=== PATIENT | female | born 1955 | race Caucasian/White ===

== ENCOUNTER → 2021-10-20 | Outpatient (CLI) | payer MEDICARE, OTHER, SELFPAY ==
[2021-10-20 17:48] LABS: Absolute Lymphocyte Count 2.51 X10^3/uL (0.83-4.51); Absolute Neutrophil Count 5.2 X10^3/uL (2.0-7.7); Basophil# 0.04 X10^3/uL; Basophil% 0.5 % (0-1); Eosinophil# 0.23 X10^3/uL; Eosinophils% 2.7 % (0-5); Hematocrit 37.9 % (37-47); Hemoglobin 12.6 g/dL (12.0-15.0); Lymphocyte # 2.51 X10^3/ul (0.83-4.51); Lymphocyte % 29.3 % (19-41); Mean Corp Hgb Conc 33.2 g/dL (32-36); Mean Corpuscular Hgb 31.7 pg (27.0-32.0); Mean Corpuscular Volume 95.5 fL (81-99); Mean Platelet Vol. 9.4 fl (6.2-12.0); Monocyte# 0.53 X10^3/uL; Monocyte% 6.2 % (0-10); NRBC Flagged by Analyzer 0 % (0-5); Neutrophil # 5.23 X10^3/uL (2.7-7.7); Neutrophil % 60.9 % (47-70); Platelet Count 342 K/mm3 (150-450); RBC Distribution Width CV 15.8 % (11.6-14.6); RBC Distribution Width SD 54.3 fl (35.1-43.9); Red Blood Count 3.97 M/mm3 (4.2-5.4); White Blood Count 8.6 K/mm3 (4.4-11.0)
[2021-10-20 17:50] LABS: Erythrocyte Sedimentation Rate 7 mm/hr (0-30)
[2021-10-20 18:00] LABS: CRP 3.75 mg/L (0.0-3.0)
== END | disposition home or self-care (01) ==
PROVIDERS: Referring Provider Specialist; Visit Provider Specialist
DX: Z96.651 Presence of right artificial knee joint (principal)
CPT/HCPCS: 36415; 85025; 85652; 86140

== ENCOUNTER → 2021-11-01 | Outpatient (CLI) | payer MEDICARE, OTHER, SELFPAY ==
[2021-11-01 13:12] LABS: Synovial Fld Mononuclear WBC # 0.851 10^3/ul; Synovial Fld Mononuclear WBC % 65.8 %; Synovial Fld Polynuclear WBC # 0.443 10^3/uL; Synovial Fld Polynuclear WBC % 34.2 %
[2021-11-01 13:18] LABS: AUTO B FLUID DILUENT BKGD CT WBC <0.1 RBC <0.01 (W<.1,R<.01); Appearance /Synovial Fluid Sl Cl (CLEAR); Color / Synovial Fluid Yellow (Pale Yellow); Viscosity / Synovial Fluid Sl. Viscous (HIGH)
[2021-11-01 13:19] LABS: Source / Synovial Fluid R KNEE
[2021-11-01 13:24] LABS: RBC /Synovial Fluid 230 /mm3 (0)
[2021-11-01 13:44] LABS: Lymph 37 %; Monocyte /Synovial Fluid 35 %; Neutrophil 27 % (0-25); Other Cell /Synovial Fluid 1 %
[2021-11-03 10:16] LABS: Pathologist Comment Reviewed
== END | disposition home or self-care (01) ==
LOC: LABSPEC 12:13
PROVIDERS: Referring Provider Specialist; Visit Provider Specialist
DX: M25.461 Effusion, right knee (principal); Z96.651 Presence of right artificial knee joint
CPT/HCPCS: 87015; 87070; 87075; 87101; 87116; 87205; 87206; 89050; 89051

== ENCOUNTER 2022-01-19 10:40 | Inpatient (IN) | payer MEDICARE, OTHER, SELFPAY ==
--- NOTE | 2022-01-03 09:09 | EKG12_ITS ---
Test Reason : PRE OP Blood Pressure : / mmHG Vent. Rate : 073 BPM Atrial Rate : 073 BPM P-R Int : 162 ms QRS Dur : 100 ms QT Int : 424 ms P-R-T Axes : 059 004 -02 degrees QTc Int : 467 ms Normal sinus rhythm Nonspecific T wave abnormality Abnormal ECG Confirmed by MORGAN VALENTE, YUMIKO ([id number]), scientific editor ZINA MALIK ([id number]) on 01/03/2022 2:04:44 PM Referred By: Kristian Vela Confirmed By:YUMIKO MORA MD
--- NOTE | 2022-01-03 09:34 | RAD_ITS ---
EXAM: XR CHEST, 2 VIEWS CLINICAL INDICATION: PREOP TECHNIQUE: Frontal and lateral views of the chest. This report was created using depict report generation technology. COMPARISON: None. FINDINGS: LUNGS AND PLEURAL SPACES: Unremarkable. No consolidation or edema. No pneumothorax. No effusion. HEART: Unremarkable. Cardiac silhouette not enlarged. MEDIASTINUM: Central airways and mediastinal contour are unremarkable. BONES/JOINTS: Unremarkable. SOFT TISSUES: Unremarkable. RAD/Chest PA and Lateral IMPRESSION: No radiographic evidence of acute cardiopulmonary disease. Electronically Signed: Chaim Romero MD at 23:42 EDT ,
[2022-01-03 10:04] LABS: Absolute Lymphocyte Count 2.07 X10^3/uL (0.83-4.51); Absolute Neutrophil Count 4.8 X10^3/uL (2.0-7.7); Basophil# 0.04 X10^3/uL; Basophil% 0.5 % (0-1); Eosinophil# 0.26 X10^3/uL; Eosinophils% 3.2 % (0-5); Hematocrit 36.9 % (37-47); Hemoglobin 11.9 g/dL (12.0-15.0); Lymphocyte # 2.07 X10^3/ul (0.83-4.51); Lymphocyte % 25.2 % (19-41); Mean Corp Hgb Conc 32.2 g/dL (32-36); Mean Corpuscular Volume 99.2 fL (81-99); Mean Platelet Vol. 9.2 fl (6.2-12.0); Monocyte# 0.95 X10^3/uL; Monocyte% 11.6 % (0-10); NRBC Flagged by Analyzer 0 % (0-5); Neutrophil # 4.84 X10^3/uL (2.7-7.7); Neutrophil % 58.9 % (47-70); Platelet Count 398 K/mm3 (150-450); RBC Distribution Width CV 14.8 % (11.6-14.6); RBC Distribution Width SD 53.9 fl (35.1-43.9); Red Blood Count 3.72 M/mm3 (4.2-5.4); White Blood Count 8.2 K/mm3 (4.4-11.0)
[2022-01-03 10:32] LABS: Hemoglobin A1c 4.8 % (3.8-5.6)
[2022-01-03 10:52] LABS: Albumin, Serum 3.9 g/dL (3.2-5.0); Anion Gap 4 (5-15); BUN 16 mg/dL (7-18); BUN/Creat Ratio 17.8 RATIO (10-20); Calcium,Total 9.1 mg/dL (8.5-10.1); Chloride 109 mmol/L (98-107); EST Glomerular Filtration Rate 66 mL/min (>60); Est Glom Filt Rate - Afr Amer 80 mL/min (>60); Glucose 82 mg/dL (74-106); Sodium Level 140 mmol/L (136-145)
[2022-01-03 11:32] LABS: Magnesium 2.2 mg/dL (1.6-2.6); Thyroid Stim Hormone (TSH) 5.29 uIU/mL (0.358-3.74)
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
[2022-01-19] VITALS (14 sets, daily range): BP systolic 82–142; BP diastolic 56–96; PULSE 75–89; RESP 16–22; TEMP 36.2–36.7; O2SAT 86–100; BMI 41.1; BMI 41.3; BMI 41.4
--- NOTE | 2022-01-19 11:04 | OP.PCM_ITS ---
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 Description of Surgical Findings:: Stable knee with good patella tracking. Patella component was stable and we elected to retain the patella component. Surgeon: Kristian Vela emergency worker: Pacheco Damian Type of Anesthesia: Spinal Anesthesiologist: Kumar Choi Special Medications: 2 g Ancef, 1 g TXA at incision, 1 g TXA closure, 10 mg Decadron, joint cocktail (5 mg Duramorph, 30 mL of 0.5% Ropivicaine, 1000 units of epinephrine, 30 mg of Toradol) Specimen's removed: 3 separate specimens were sent to microbiology Estimated Blood Loss (mL): 250 Fluids Replaced: 1500 mL crystalloid Description of Procedure: Implants used: Femur: [place] triathlon total stabilized right distal femoral component with 15 x 100 mm cemented stem, 5 mm augments distally medially and laterally. 5 mm augments posteriorly medially and laterally Tibia: [place] triathlon universal tibial baseplate size 3 with size A cone and 12 x 50 mm cemented stem Poly: [employer] X3 triathlon total stabilized 13 mm polyethylene Brief history operative indications: 66-year-old f with total knee replacement in 1998. Patient demonstrated evidence of instability associated with polyethylene wear and osteolysis. After ruling out infection we agreed to proceed with revision total knee replacement which had risks which include but not limited to blood loss, DVTs, PEs, nervous damage, infection, the risk of anesthesia. Patient demonstrate understanding was able to sign informed consent. Medical clearance was obtained. Procedure: On the date of procedure patient's r lower extremity was marked in the preoperative area. The patient was then taken back to the operating room where the patient was placed on the table in the supine position. All bony prominences were identified a well-padded. Anesthesia assumed control of the C-spine and airway and remained controlled throughout the remainder of the procedure. A tourniquet was placed on the r upper thigh and the leg was prepped in a sterile fashion. The surgeon then scrubbed at this time. Upon reentering the room r lo wer extremity was draped in a standard orthopedic fashion. A timeout was then called and everyone agreed upon the side, the site, the procedure to be performed, patient's identity and antibiotics given. An Esmarch bandage was used to exsanguinate the extremity and the tourniquet was placed up to 250 mmHg with the knee in flexion. A midline skin incision was made using the previous incision and extending it proximally and distally to identify normal tissue planes. Medial and lateral flaps were developed appropriate releases. The standard medial parapatellar arthrotomy was made and the patella was subluxed laterally. At this time an aggressive synovectomy was performed re-creating the medial gutter first, then the suprapatellar pouch than the lateral gutter. Once this was completed the knee was flexed up an osteotome was used to remove the tibial polyethylene. The remainder of the synovium was debrided. The standard deep MCL release was done and the patella scar pad was resected and lateral releases were performed. Next our attention was directed to the femur. Where flexible osteotomes and TPS saw were used to break up the implant cement interface. This was done both medially and laterally. After this a bone tamp was used to remove the femur component from the end of the bone. This was done with minimal bone loss. At this time attention was now directed towards the proximal tibia. Possible osteotome and TPS saw were then used to break up the proximal tibia implant interface and stacked osteotomes were used to remove the tibial implant. This was done with minimal bone loss. Our attention was then turned to the tibia where the intramedullary canal was reamed to 15 MM and a size A tibial cone was reamed. We then made a cleanup cut on the tibia, A drop jeffrey was then used to verify the cut. A size 3 tibial base plate was selected. the knee was flexed and the tibial component was pinned into place and the boss reamer was used to ream the proximal medullary canal. The trial implant was impacted in its prepared position. Our attention was then turned back to the femur or the femur intramedullary canal was reamed to 18 mm using the previous implants a size 4 TCG cutting guide with a 18 mm stem was put into place. The medial epicondyle was used to set the joint line. With this TCG cutting guide we used a 13 mm polyethylene trial in order to help balance the gaps. Once the gaps were appropriately balanced the guide was firmly pinned into place. Distal cuts were made with 5 mm augments medially and 5 mm augment laterally. Posterior cuts were made with 5 mm augments medially and 5 mm augment laterally. Using the guide the box cut was made using a reciprocating saw. The appropriate trials were then placed on the femur and tibia. A trial polyet hylene was trialed to ensure proper balancing and stability of the knee. Patella tracking, was then verified and corrected appropriately as needed. Our attention was then directed to the patella. Patella remained intact and appropriate. Based on x-rays it was firmly fixed. Patellar tracking was again checked and deemed appropriate. Final components were verified and opened, 6 liters of normal saline were irrigated throughout the joint under low-pressure lavage. Then the cement was mixed in a vacuum. [employer] Simplex cement with tobramycin was used. The wound was copiously irrigated with normal saline. When the cement was ready cement plugs were placed in the tibial cone was placed the components were cemented into place starting with the tibia, femur. The trial poly component was placed and the knee was placed in full extension. All excess cement was removed in the process. Once the cement had cured the tracking, alignment and balance were verified and a size 13 mm TS polyethylene component was placed. Once the final components were placed a 3-minute dilute Betadine lavage followed by a chlorhexidine lavage was used and the wound was copiously irrigated with normal saline solution and the remainder of the periarticular injection was given. The wound was closed in a layer niño fashion using #1 vicryl interrupted sutures for the arthrotomy, 2-0 interrupted Vicryl for the subcuticular layer and ivon for final skin closure. A sterile compressive dressing was then placed. The patient was then awakened from anesthesia, transferred to the [facility] and transferred to the PACU for recovery. Post op plan DVT ppx: ASA 81mg BID, thigh high compression stockings Follow up: in office in 2 weeks for wound check PT: to start POD #0 at hospital, outpatient PT should be arranged. Doxycycline 100 mg twice daily for 2 weeks as we follow cultures. My physician family and divorce legal assistant was a vital part of this case. He was important in appropriate retraction during the case, and protection of soft tissues during bony cuts. His intimate knowledge of the case and my steps aided in safe and expedient completion of the procedure as well as appropriate position of the leg during the case. He was also vital in assisting with closure under my direct supervision. Complications No intraoperative complications Admit VTE Documentation VTE Present on Admission: No VTE Mechan Device Prophylaxis: SCD's and Thigh High COREY Hose VTE Pharm Prophylaxis ordered?: Yes
[2022-01-19] MEDS: Lactated Ringers 1,000 ML 999 ML IV ×2 (11:36→17:00)
[2022-01-19] MEDS: Magnesium 1 GM over 15 mins IV (11:37)
[2022-01-19] MEDS: Cefazolin 2 GM in 0.9% Normal Saline 100 ML IV (12:40)
[2022-01-19] MEDS: TXA 1000mg in NS100 100ml (IVPB at Incision) 660 MG IV (12:50)
[2022-01-19] MEDS: dexAMETHasone 10 MG/ML Vial IV (12:50)
[2022-01-19 13:15] LABS: Bedside Glucose 92 mg/dL (74-106)
[2022-01-19] MEDS: TXA 1000mg in NS100 100ml (IVPB at Closure) 660 MG IV (14:52)
[2022-01-19] MEDS: Albuterol 2.5 MG/3 ML VIAL.NEB. INHALATION (15:50)
--- NOTE | 2022-01-19 16:30 | RAD_ITS ---
STUDY: X-RAY - RIGHT KNEE REASON FOR EXAM: Female, 66 years old. post op -- AP and Lateral xray of operative knee in PACU TECHNIQUE: AP and lateral view(s) of the knee. COMPARISON: None. FINDINGS: Postsurgical changes status post knee prosthesis placement which appears to be in anatomic alignment and position.. There is residual gas and fluid within the suprapatella bursa. Surgical clips are seen in the soft tissues at the operative site RAD/Knee 1 or 2 Views IMPRESSION: Status post knee prosthesis placement. Electronically Signed: Ry aGrcia MD at 16:53 EST ,
[2022-01-19] MEDS: HYDROcodone Bitartrate/Apap 5/325 Tablet PO (17:56)
[2022-01-19] MEDS: Budesonide Respules 0.5 MG/2 ML AMPUL.NEB. INHALATION (19:15)
--- NOTE | 2022-01-19 19:25 | PN.HOSP_ITS ---
Subjective Subjective Consult requested by Dr. Vela for postoperative medical management. Patient presents for a right total knee revision with entire femoral and tibial component. Patient having some discomfort in her knee currently but is very tolerable. Denies any other new complaints. Objective Data Objective Data Vital Signs: Vital Signs Temp Pulse Resp BP Pulse Ox O2 Del Method O2 Flow Rate 36.7 C 82 18 133/63 H 96 Room Air 4 01/19/22 18:30 01/19/22 18:30 01/19/22 18:30 01/19/22 18:30 01/19/22 18:30 01/19/22 18:30 01/19/22 17:00 Oxygen Flow Rate (L/min) 4 Oxygen Delivery Method Room Air Weight: 102 kg Body Mass Index (BMI) 41.3 Intake & Output: Intake and Output for Last 24 Hours 01/17/22 01/18/22 01/19/22 23:59 23:59 23:59 Intake Total 2432 / 2432 Balance 2432 / 2432 Lab / Micro Data Result Diagrams: 01/03/22 09:43 01/03/22 09:43 Labs: Laboratory Results - last 24 hr 01/19/22 11:21: POC Glucose 92 Micro: Microbiology 01/19/22 11:15 Nasal Secretion SARS-CoV-2 Antigen (Rapid) - Final 01/03/22 09:43 Swab (Method) Nasal Screen MRSA/MSSA - Final Radiography Diagnostic Testing: Radiology Impression Knee X-Ray 01/19/22 16:30 IMPRESSION: Status post knee prosthesis placement. Electronically Signed: Ry Garcia MD at 16:53 EST , Physical Exam Const alert Constitutional Narrative: In bed. No respiratory distress. No conversational dyspnea. HEENT head/scalp atraumatic and moist oral mucous membranes Resp normal respiratory effort, no retractions, no use of accessory muscles and clear to auscultation bilaterally Cardio regular rate, regular rhythm, S1 normal heart sound and S2 normal heart sound GI normal to inspection, nondistended, normoactive bowel sounds, soft to palpation, non-tender and non-distended Neuro Sensorium / Orientation: awake and alert Assessment & Plan Assessment/Plan (1) Asthma: PLAN: Patient without any respiratory distress. Pulse ox was 91% while in bed. Continue with bronchodilators as have been ordered. No need for oxygen at this point in time but would encourage incentive spirometer, which I will order. PLAN: Plan Status post right knee replacement * Management per orthopedics * VTE prophylaxis with aspirin 81 twice daily Other chronic conditions * Hypothyroidism: Continue levothyroxine. * Rheumatoid arthritis: Continue with Plaquenil and methotrexate * Hypertension: Continue with lisinopril Thank you the consult. The hospital service will follow along. If patient remains stable from medical standpoint on the , the Hospitalist service may sign off. Charges/Coding Visit Charges Inpatient E&M: 81833 Subs Hosp L2
[2022-01-19] MEDS: Ketorolac 15 MG/ML Vial IV (20:06)
[2022-01-19] MEDS: HYDROmorphone 1 MG/ML Syringe IV (22:08)
[2022-01-19] MEDS: Cefazolin 1 GM/50 ML BAG IV (22:09)
[2022-01-19] MEDS: sulfaSALAzine 500 MG Tablet 1000 MG PO (22:09)
[2022-01-19] MEDS: Senna/Docusate Sodium 1 Tablet 2 TABLET PO (22:12)
[2022-01-19] MEDS: Levothyroxine 100 MCG Tablet PO (22:12)
[2022-01-19] MEDS: Lisinopril 10 MG Tablet PO (22:12)
[2022-01-19] MEDS: Hydroxychloroquine 200 MG Tablet PO (22:24)
[2022-01-19] MEDS: Ondansetron 4 MG/2 ML Vial IV (22:40)
[2022-01-19] MEDS: proMETHazine 25 MG/ML Syringe 12.5 MG IM (23:38)
[2022-01-20] VITALS (9 sets, daily range): BP systolic 98–125; BP diastolic 39–83; PULSE 61–81; RESP 15–17; TEMP 36.5–36.8; O2SAT 95–98; BMI 41.4
[2022-01-20] MEDS: Cefazolin 1 GM/50 ML BAG IV (05:27)
[2022-01-20 06:27] LABS: Hematocrit 29.8 % (37-47); Hemoglobin 9.4 g/dL (12.0-15.0); Mean Corp Hgb Conc 31.5 g/dL (32-36); Mean Corpuscular Hgb 31.9 pg (27.0-32.0); Mean Platelet Vol. 9.5 fl (6.2-12.0); Platelet Count 271 K/mm3 (150-450); RBC Distribution Width CV 14.3 % (11.6-14.6); RBC Distribution Width SD 52.9 fl (35.1-43.9); Red Blood Count 2.95 M/mm3 (4.2-5.4); White Blood Count 10.1 K/mm3 (4.4-11.0)
[2022-01-20 06:56] LABS: Anion Gap 4 (5-15); BUN 18 mg/dL (7-18); BUN/Creat Ratio 22.3 RATIO (10-20); Chloride 106 mmol/L (98-107); Creatinine, Serum 0.81 mg/dL (0.55-1.02); EST Glomerular Filtration Rate 75 mL/min (>60); Est Glom Filt Rate - Afr Amer 91 mL/min (>60); Estimated Creatinine Clearance 50.86 ml/min; Glucose 108 mg/dL (74-106); Potassium 4.3 mmol/L (3.5-5.1); Sodium Level 138 mmol/L (136-145)
[2022-01-20] MEDS: Budesonide Respules 0.5 MG/2 ML AMPUL.NEB. INHALATION ×2 (07:25→19:16)
[2022-01-20] MEDS: HYDROcodone Bitartrate/Apap 5/325 Tablet PO ×3 (08:20→20:39)
[2022-01-20] MEDS: sulfaSALAzine 500 MG Tablet 1000 MG PO (08:21)
[2022-01-20] MEDS: Hydroxychloroquine 200 MG Tablet PO ×2 (08:22→20:40)
[2022-01-20] MEDS: Senna/Docusate Sodium 1 Tablet 2 TABLET PO ×2 (08:22→20:40)
[2022-01-20] MEDS: Aspirin 81 MG TAB.CHEW PO ×2 (08:28→18:07)
[2022-01-20] MEDS: Folic Acid 1 MG Tablet PO (08:28)
[2022-01-20] MEDS: Famotidine 20 MG Tablet PO (08:28)
--- NOTE | 2022-01-20 09:45 | CASEMGMT ---
LUCÍA OROZCO Face to Face with patient for initial transition planning/care coordination assessment. RN PAM introduced self and role at [facility]. Patient lying in bed, alert and oriented. Patient willing to participate in assessment and is able to answer all questions appropriately. Care providers, pharmacy, and demographics verified. Patient wishes to discharge home with outpatient therapy setup with [facility]. Patient states she has no further needs or concerns at this time. CM to follow for discharge planning needs that may arise. PCP: Glenn Specialists: judi Vela; latanya Kelly Preferred Pharmacy: [facility] Insurance: [facility] Prescription Benefit: yes Living Will/HPOA: yes, Michael Washington LNOK: , daughter Living Arrangements: Patient states that she and her at staying at daughter's house till . Daughter has single story home with 2 steps to enter the home. Patient states she was independent prior to surgery Transportation: DME/HHC: Patient states she has cane and walker at home. Patient is scheduled for outpatient therapy at [facility] starting Monday. Disposition Plan: Patient to discharge home with outpatient therapy, family support, and follow-up plans in place. Niya MORTENSEN, RN, CM
[2022-01-20] MEDS: Montelukast 10 MG Tablet PO (10:27)
--- NOTE | 2022-01-20 11:19 | PN.ORTHO_ITS ---
Subjective Subjective The patient was sitting in bed upon examination. Patient denies any chest pain, shortness of breath, dizziness, lightheadedness, nausea or vomiting, or calf pain. Patient does not feel her pain is been adequately controlled. Patient does have significant allergies and limitations on medications. She cannot take oxycodone. She reports that she cannot take meloxicam as it gives her significant diarrhea. The only medication nonsteroidal anti-inflammatory she can take is ibuprofen. She did have some nausea yesterday. Improved today. Preoperatively patient was having some anemia in which she started on ferrous sulfate and folic acid at home. Objective Data Objective Data Vital Signs: Vital Signs Temp Pulse Resp BP Pulse Ox O2 Del Method O2 Flow Rate 98.1 F 68 17 98/63 98 Room Air 2 01/20/22 10:36 01/20/22 10:36 01/20/22 10:36 01/20/22 10:36 01/20/22 10:36 01/20/22 10:36 01/20/22 03:15 Oxygen Flow Rate (L/min) 2 Oxygen Delivery Method Room Air Weight: 102 kg Body Mass Index (BMI) 41.3 Intake & Output: Intake and Output for Last 24 Hours 01/18/22 01/19/22 01/20/22 23:59 23:59 23:59 Intake Total 3482 / 3682 400 / 400 Output Total 100 / 100 Balance 3482 / 3682 300 / 300 Lab / Micro Data Result Diagrams: 01/20/22 06:00 01/20/22 06:00 Labs: Laboratory Results - last 24 hr 01/19/22 11:21: POC Glucose 92 01/20/22 06:00: WBC 10.1, RBC 2.95 L, Hgb 9.4 L, Hct 29.8 L, MCV 101.0 H, MCH 31.9, MCHC 31.5 L, RDW Std Deviation 52.9 H, RDW Coeff of Rusty 14.3, Plt Count 271, MPV 9.5 01/20/22 06:00: Sodium 138, Potassium 4.3, Chloride 106, Carbon Dioxide 28.0, Anion Gap 4 L, BUN 18, Creatinine 0.81, Estim Creat Clear Calc 50.86, Est GFR (MDRD) Af Amer 91, Est GFR (MDRD) Non-Af 75, BUN/Creatinine Ratio 22.3 H, Glucose 108 H, Calcium 8.0 L Micro: Microbiology 01/19/22 13:34 Tissue - Knee Wound Culture - Preliminary No growth-Final to follow 01/19/22 13:32 Tissue - Knee Wound Culture - Preliminary No growth-Final to follow 01/19/22 13:29 Tissue - Knee Wound Culture - Preliminary No growth-Final to follow 01/19/22 11:15 Nasal Secretion SARS-CoV-2 Antigen (Rapid) - Final 01/03/22 09:43 Swab (Method) Nasal Screen MRSA/MSSA - Final Radiography Diagnostic Testing: Radiology Impression Knee X-Ray 01/19/22 16:30 IMPRESSION: Status post knee prosthesis placement. Electronically Signed: Ry Garcia MD at 16:53 EST , Physical Exam Narrative Vital signs stable and afebrile. Patient has had some lower blood pressures but currently asymptomatic. SCDs and COREY hose are in place bilaterally Patient is able to plantarflex and dorsiflex actively. Sensation is intact to light touch to saphenous, sural, superficial and deep peroneal, and tibial distribution. Dressing is clean dry and intact. Negative Homans bilaterally, negative signs and symptoms of DVT. Const alert, oriented x3 and no apparent distress Assessment & Plan Assessment/Plan (1) Status post revision of total replacement of right knee: PLAN: 1. S/P right revision total knee arthroplasty POD #1 2. Continue Pain Medications: [place]. Patient reports that she is unable to take meloxicam as it causes significant diarrhea. Only nonsteroidal anti- inflammatory she can take as ibuprofen. I did place ibuprofen 600 mg in her chart for as needed pain. We are not able to use oxycodone or any morphine product due to allergies. Our narcotics are limited due to allergies. I did explain to the patient that she should try and stay away from taking aspirin and ibuprofen together postoperatively. Recommend taking it at lunchtime. 3. DVT Prophylaxis: Take 81 mg aspirin twice daily for 4 weeks postoperatively for DVT prophylaxis. I did discuss with the patient we will continue her omeprazole postoperatively while on these medications. If she has any stomach irritation she has to stop the ibuprofen. I do recommend she take this away from the aspirin during the day. Recommend at lunchtime. 4. PT/OT: Continue with physical therapy weightbearing as tolerated with walker 5. H & H: 9.4/29.8, asymptomatic. Postoperative anemia secondary to acute blood loss from surgery without any intra operative complications. Patient pre operatively was 11.9 with her hemoglobin. She has been taking ferrous sulfate and folic acid. We will continue with this postoperatively. I do recommend she schedule a follow-up with the primary care physician 2 weeks postoperatively with repeat lab work and continued management of the anemia. I did discuss with case management and they will arrange 2-week postoperative follow-up with primary care physician 6. Continue antibiotics postoperatively while following cultures: Currently on doxycycline for 2 weeks postoperatively. Cultures were reviewed in chart and there is currently no growth or organisms seen today. I discussed with the patient potential side effects of doxycycline including sensitivity to the sunlight and increased risk of skin burn. Recommend patient take appropriate precautions. Also recommend patient to take probiotic while on the antibiotic. Patient voiced understanding agreement. 7. Continue postoperative medical management per medicine 8. Encouraged Incentive Spirometry 9. Disposition: Due to patient pain levels and limitations on postoperative pain medications, I would like to see how patient does overnight to make sure that she is appropriately managed with her pain. I did add in ibuprofen as needed. She does have outpatient physical therapy established. Plan will be for possible discharge home tomorrow as long as patient is stable. Continue to work with physical therapy today and tomorrow. We will repeat lab work tomorrow following her hemoglobin. I have reviewed the [place] Automated Rx Reporting System (OARRS) report for this patient for refill pattern and other prescriber involvement as part of the appropriate surveillance for the provision of acute and chronic controlled medications. The report was requested and reviewed on the date of this entry and was considered in the prescribing process. This dictation was created using voice recognition software. Phonetic and/or grammatical errors may exist.
--- NOTE | 2022-01-20 11:28 | DCINST_ITS ---
Discharge Instructions Diet Discharge Diet: No restrictions Activity Discharge Activity: May Not Drive (No driving for 6 weeks postoperatively. Must be off all narcotics as well and able to walk 100 feet without the use of cane or walker.) May shower in (days): 1 (Please turn dressing away from water. Okay to get wet as long as dressing is intact to skin.) Ice area for (Minutes): 20 (Every 1-2 hours while awake. Please place barrier between the skin and ice pack.) Weight Bearing Status: Weight bearing as tolerated Keep extremity elevated above heart level: Operative Extremity Dressing / Incision Call your doctor if your incision/area has: Continuous Slow Oozing, Sudden Increased Bleeding, Increased Pain/ Swelling, Increased Redness and Foul Smelling Discharge Call your doctor if you observe: Fever of 101 or Higher, Coldness, Increased Pain, Numbness or Tingling, Change in Color, Shortness of breath, Chest pain, Calf discomfort and Uncontrolled pain Remove Dressing in: 4 days (Okay to remove dressing on January 24, 2022) Additional Dressing/Incision Instructions:: Follow [facility] Post-op Instructions. Once postoperative dressing has been removed only use gentle soap and water over the incision. Do not use any ointments, Neosporin, salves, alcohol pads over the incision for 6 weeks postoperatively. Do not submerge underwater for 6 weeks postoperatively. Continue with COREY hose/elastic stockings for 2 weeks postoperatively. May remove at nighttime but needs to be placed back on the leg during the day. Do NOT use alcohol with narcotic pain medication. Do NOT make important decisions while taking narcotic medication. If you have problems with taking your medication (rash, itching, nausea, etc.) call the office at once. Follow Up Care Test Results: Test results from this visit will be discussed in further detail at your follow- up appointment, if applicable. Discharge Plan Admission Admit Date/Time: 01/19/22 10:40 Attending Provider: Kristian Vela Primary Care Provider: ELIZABETH DILLARD Consulting Providers: Oscar Aguiar ; Srinivas Lugo Discharge Orders/Prescriptions Prescriptions: New aspirin 81 mg Tablet,Chewable 81 mg PO BIDCM 30 Days Qty: 60 0RF Rx Instructions: Take 81 mg aspirin twice daily for 4 weeks postoperatively for DVT prophylaxis. hydrocodone-acetaminophen 5-325 mg Tablet 2 tab PO Q6H PRN PRN (Reason: Pain Score 6-10) 7 Days Qty: 56 0RF doxycycline monohydrate 100 mg Capsule 100 mg PO BID 13 Days Qty: 26 0RF ibuprofen 600 mg Tablet 600 mg PO Q6H PRN PRN (Reason: Pain Score 4-10) Qty: 60 0RF Continued fluticasone propion-salmeterol [Advair Diskus] 250-50 mcg/dose Blister With Device 1 inh INHALATION BID sulfasalazine 500 mg Tablet 1,000 mg PO BID Rx Instructions: give with food (meal/snack) valerian root 100 mg Capsule 200 mg PO QHS methotrexate sodium 2.5 mg Tablet 25 mg PO TU lisinopril 10 mg Tablet 10 mg PO QHS folic acid 1 mg Tablet 1 mg PO DAILY montelukast [Singulair] 10 mg Tablet 10 mg PO DAILY hydroxychloroquine [Plaquenil] 200 mg Tablet 200 mg PO BID albuterol sulfate 90 mcg/actuation Hfa Aerosol Inhaler 1 inh INHALATION Q6H PRN (Reason: ALLERGIES) cholecalciferol (vitamin D3) [Vitamin D3] 50 mcg (2,000 unit) Capsule 50 mcg PO TU Zyrtec 10 mg Capsule 10 mg PO DAILY levothyroxine 100 mcg Capsule 100 mcg PO QHS omeprazole 20 mg Capsule,Delayed Release(Dr/Ec) 20 mg PO PRN PRN (Reason: Indigestion) epinephrine 0.3 mg/0.3 mL Auto-Injector 0.3 mg IM Q4H PRN (Reason: Anaphylaxis) docusate sodium 50 mg Capsule 50 mg PO DAILY ferrous sulfate [iron] 325 mg (65 mg iron) Tablet 325 mg PO BID Other Ambulatory Orders: CBC-Complete Blood Cnt No Diff (Routine) Timeframe: 2 Weeks Facility: [facility] - Location: Laboratory Ordered By: Pacheco GRAMAJO Referrals / Follow Up: ELIZABETH DILLARD [Other] - 02/08/22 11:30 am Physical,Therapy [Other] - 01/24/22 9:30 am Sary Mercado PA [Med Staff - Adv Practice Prof] - 02/01/22 9:15 am Disposition Disposition (needs filled in before D/C Order can be placed): Home, Self Care
--- NOTE | 2022-01-20 12:22 | CASEMGMT ---
LUCÍA OROZCO NOTE: ROX Bergman, requests pt to have a f/u appt w/PCP in 2 weeks for anemia. LUCÍA OROZCO to room. Pt states her PCP is Sylvie Elizabeth NP, @ [facility] ([facility]) in [facility], #[phone]. Appt scheduled @ [facility] for Feb 08 @ 11:30 AM as this is the first available appt. MODESTO Mercer, works w/Dr Johnson and Dr Johnson is out of the office after the week of Thanksgiving for 2 weeks, so he does not have any available appts, either. They will place her on the cancellation list to call her if an earlier appt opens up. Appt added in discharge plan and pt and made aware of appt date/time and that she will be placed on list to call her if anything opens up earlier. Pt states she plans to discharge home to her daughter's home in [place]. She has a f/u appt w/ROX Okeefe, @ [facility] prior to Thanksgiving and then plans to return to her home in [place] after Thanksgiving. Pt and deny having any further discharge planning needs. Abram MORTENSEN RN CM
[2022-01-20] MEDS: Ibuprofen 600 MG Tablet PO (13:09)
[2022-01-20] MEDS: Doxycycline 100 MG CAPSULE PO ×2 (13:09→20:41)
--- NOTE | 2022-01-20 13:50 | PCM.PN.HOSP ---
Subjective Subjective Patient was seen and examined today, she was walking in the ng and did not appear to have severe knee pain while walking. Objective Data Objective Data Vital Signs: Vital Signs Temp Pulse Resp BP Pulse Ox O2 Del Method O2 Flow Rate 98.1 F 68 17 98/63 98 Room Air 2 01/20/22 10:36 01/20/22 10:36 01/20/22 10:36 01/20/22 10:36 01/20/22 10:36 01/20/22 10:36 01/20/22 03:15 Oxygen Flow Rate (L/min) 2 Oxygen Delivery Method Room Air Weight: 102 kg Body Mass Index (BMI) 41.3 Intake & Output: Intake and Output for Last 24 Hours 01/18/22 01/19/22 01/20/22 23:59 23:59 23:59 Intake Total 3482 / 3682 400 / 400 Output Total 100 / 100 Balance 3482 / 3682 300 / 300 Lab / Micro Data Result Diagrams: 01/20/22 06:00 01/20/22 06:00 Labs: Laboratory Results - last 24 hr 01/20/22 06:00: WBC 10.1, RBC 2.95 L, Hgb 9.4 L, Hct 29.8 L, MCV 101.0 H, MCH 31.9, MCHC 31.5 L, RDW Std Deviation 52.9 H, RDW Coeff of Rusty 14.3, Plt Count 271, MPV 9.5 01/20/22 06:00: Sodium 138, Potassium 4.3, Chloride 106, Carbon Dioxide 28.0, Anion Gap 4 L, BUN 18, Creatinine 0.81, Estim Creat Clear Calc 50.86, Est GFR (MDRD) Af Amer 91, Est GFR (MDRD) Non-Af 75, BUN/Creatinine Ratio 22.3 H, Glucose 108 H, Calcium 8.0 L Micro: Microbiology 01/19/22 13:34 Tissue - Knee Gram Stain - Final 01/19/22 13:34 Tissue - Knee Wound Culture - Preliminary No growth-Final to follow 01/19/22 13:32 Tissue - Knee Gram Stain - Final 01/19/22 13:32 Tissue - Knee Wound Culture - Preliminary No growth-Final to follow 01/19/22 13:29 Tissue - Knee Gram Stain - Final 01/19/22 13:29 Tissue - Knee Wound Culture - Preliminary No growth-Final to follow 01/19/22 11:15 Nasal Secretion SARS-CoV-2 Antigen (Rapid) - Final 01/03/22 09:43 Swab (Method) Nasal Screen MRSA/MSSA - Final Radiography Diagnostic Testing: Radiology Impression Knee X-Ray 01/19/22 16:30 IMPRESSION: Status post knee prosthesis placement. Electronically Signed: Ry Garcia MD at 16:53 EST Reading Location ID and State: [facility] / [place] , Service support , Physical Exam Const alert, oriented x3, no apparent distress and healthy appearing Constitutional Narrative: Patient is morbidly obese General Appearance: cooperative, well kempt and well developed Orientation / Consciousness: awake, oriented to person, oriented to place and oriented to time HEENT normocephalic, head/scalp atraumatic and moist oral mucous membranes Eyes PERRL, EOMs intact bilaterally and conjunctivae normal Neck supple, no JVD, thyroid normal and no carotid bruits General: trachea midline Resp normal respiratory effort, no retractions, no use of accessory muscles and clear to auscultation bilaterally Auscultation: Negative for rales, rhonchi or wheezes Cardio regular rate, regular rhythm, S1 normal heart sound, S2 normal heart sound, no murmurs, no rub and no gallops GI normal to inspection, nondistended, normoactive bowel sounds, soft to palpation, non-tender and non-distended Skin no rashes or lesions noted General Skin Exam: no breakdown Neuro oriented x3, CN's II-XII intact bilaterally, no focal motor deficits and no sensory deficits noted Sensorium / Orientation: awake and alert Speech: speech normal Psych affect normal Assessment & Plan Assessment/Plan (1) Status post revision of total replacement of right knee: PLAN: Plan 1. Essential hypertension-continue lisinopril #2 rheumatoid arthritis-patient remains on Plaquenil, her methotrexate is not due until next week #3 hypothyroidism-patient is on Synthroid #4 status post revision right total knee replacement entire femoral and tibial component-postop day 1 Charges/Coding Visit Charges Inpatient E&M: 72477 Subs Hosp L2
--- NOTE | 2022-01-20 16:27 | CASEMGMT ---
Social Work SW spoke with pt regarding advance directives. Pt cofirms she has a living will and a health care POA naming her Rajesh [place]. MARIA ALEJANDRA informed documents are not on file at [facility] and requested they be brought in for scanning into EMR. MARGARITA Leija
[2022-01-20] MEDS: Ketorolac 15 MG/ML Vial IV (18:02)
[2022-01-20] MEDS: Levothyroxine 100 MCG Tablet PO (20:41)
[2022-01-20] MEDS: Lisinopril 10 MG Tablet PO (20:43)
[2022-01-21] MEDS: Ibuprofen 600 MG Tablet PO ×3 (00:18→12:51)
[2022-01-21 02:50] VITALS: BP 125/83; PULSE 78; RESP 16; TEMP 36.5; O2SAT 94
[2022-01-21] MEDS: HYDROcodone Bitartrate/Apap 5/325 Tablet PO ×2 (02:51→09:00)
[2022-01-21 05:37] LABS: Hematocrit 28.1 % (37-47); Hemoglobin 9.2 g/dL (12.0-15.0); Mean Corp Hgb Conc 32.7 g/dL (32-36); Mean Corpuscular Hgb 32.6 pg (27.0-32.0); Mean Corpuscular Volume 99.6 fL (81-99); Mean Platelet Vol. 9.9 fl (6.2-12.0); Platelet Count 265 K/mm3 (150-450); RBC Distribution Width CV 14.3 % (11.6-14.6); RBC Distribution Width SD 51.9 fl (35.1-43.9); Red Blood Count 2.82 M/mm3 (4.2-5.4)
--- NOTE | 2022-01-21 06:50 | PCM.PN.ORT ---
Subjective Subjective The patient was sitting in bed upon examination. Patient denies any chest pain, shortness of breath, dizziness, lightheadedness, nausea or vomiting, or calf pain. Patient states overnight her pain was not controlled and feels she was not getting the medication at appropriate times. I again discussed with her her pain management with her list of allergies. I discussed further the possibility of adding an oxycodone however she has hives from oxycodone. She was initially wanting to try to do this but changed her mind and wants to keep going with the [place]. We did add in ibuprofen as this is the only nonsteroidal anti-inflammatory she can take. She wants to go home. She wants to stay on the current narcotic plan. Initially patient was upset and states an increased pain, however as the conversation went on she did not appear to be in distress. Objective Data Objective Data Vital Signs: Vital Signs Temp Pulse Resp BP Pulse Ox O2 Del Method O2 Flow Rate 97.7 F L 78 16 125/83 H 94 Room Air 2 01/21/22 02:50 01/21/22 02:50 01/21/22 02:50 01/21/22 02:50 01/21/22 02:50 01/21/22 02:50 01/21/22 02:50 Oxygen Flow Rate (L/min) 2 Oxygen Delivery Method Room Air Weight: 102 kg Body Mass Index (BMI) 41.3 Intake & Output: Intake and Output for Last 24 Hours 01/19/22 01/20/22 01/21/22 23:59 23:59 23:59 Intake Total 3482 / 3682 800 / 800 Output Total 100 / 100 Balance 3482 / 3682 700 / 700 Lab / Micro Data Result Diagrams: 01/21/22 04:23 01/20/22 06:00 Labs: Laboratory Results - last 24 hr 01/20/22 06:00: Sodium 138, Potassium 4.3, Chloride 106, Carbon Dioxide 28.0, Anion Gap 4 L, BUN 18, Creatinine 0.81, Estim Creat Clear Calc 50.86, Est GFR (MDRD) Af Amer 91, Est GFR (MDRD) Non-Af 75, BUN/Creatinine Ratio 22.3 H, Glucose 108 H, Calcium 8.0 L 01/21/22 04:23: WBC 11.0, RBC 2.82 L, Hgb 9.2 L, Hct 28.1 L, MCV 99.6 H, MCH 32.6 H, MCHC 32.7, RDW Std Deviation 51.9 H, RDW Coeff of Rusty 14.3, Plt Count 265, MPV 9.9 Micro: Microbiology 01/19/22 13:34 Tissue - Knee Gram Stain - Final 01/19/22 13:34 Tissue - Knee Wound Culture - Preliminary No growth-Final to follow 01/19/22 13:32 Tissue - Knee Gram Stain - Final 01/19/22 13:32 Tissue - Knee Wound Culture - Preliminary No growth-Final to follow 01/19/22 13:29 Tissue - Knee Gram Stain - Final 01/19/22 13:29 Tissue - Knee Wound Culture - Preliminary No growth-Final to follow 01/19/22 11:15 Nasal Secretion SARS-CoV-2 Antigen (Rapid) - Final 01/03/22 09:43 Swab (Method) Nasal Screen MRSA/MSSA - Final Physical Exam Narrative Vital signs stable and afebrile. SCDs and COREY hose are in place bilaterally Patient is able to plantarflex and dorsiflex actively. Sensation is intact to light touch to saphenous, sural, superficial and deep peroneal, and tibial distribution. Dressing is clean dry and intact. Negative Homans bilaterally, negative signs and symptoms of DVT. Const alert, oriented x3 and no apparent distress Assessment & Plan Assessment/Plan (1) Status post revision of total replacement of right knee: PLAN: 1. S/P right revision total knee arthroplasty POD #2 2. Continue Pain Medications: Patient is currently on [place] 1 to 2 tablets every 6 hours. We did add in ibuprofen yesterday for additional pain control. Patient has difficult time with other narcotics due to side effects. We discussed this in detail and was going to try oxycodone however she wished to proceed with the [place]. I explained that she should not be taking the [place] sooner than 6 hours apart. Also recommend she take the ibuprofen away from the aspirin. Discussed the potential for stomach irritation with these 2 medications. She voiced understanding agreement. She will continue with her omeprazole at home. 3. DVT Prophylaxis: Take 81 mg aspirin twice daily for 4 weeks postoperatively for DVT prophylaxis. I did discuss with the patient we will continue her omeprazole postoperatively while on these medications. If she has any stomach irritation she has to stop the ibuprofen. I do recommend she take this away from the aspirin during the day. 4. PT/OT: Continue with physical therapy weightbearing as tolerated with walker 5. H & H: 9.2/28.1, asymptomatic. Postoperative anemia secondary to acute blood loss from surgery without any intra operative complications. Patient preoperatively was 11.9 with her hemoglobin. She has been taking ferrous sulfate and folic acid. We will continue with this postoperatively. Follow-up visit with the primary care physician has been scheduled by case management. Order for CBC upon discharge prior to appointment with primary care physician has been placed on chart 6. Continue antibiotics postoperatively while following cultures: Currently on doxycycline for 2 weeks postoperatively. Cultures were reviewed in chart and there is currently no growth or organisms seen today as well. I discussed with the patient potential side effects of doxycycline including sensitivity to the sunlight and increased risk of skin burn. Recommend patient take appropriate precautions. Also recommend patient to take probiotic while on the antibiotic. Patient voiced understanding agreement. 7. Continue postoperative medical management per medicine 8. Encouraged Incentive Spirometry 9. Disposition: Patient is wanting to go home. We discussed her pain regimen in detail. She will go home on the [place] as well as the ibuprofen. She would like her prescriptions E scribed to [facility] in [facility]. If she has any complications upon discharge she will contact our office with any concerns or questions. She will follow-up per postop instructions. I have reviewed the [place] Automated Rx Reporting System (OARRS) report for this patient for refill pattern and other prescriber involvement as part of the appropriate surveillance for the provision of acute and chronic controlled medications. The report was requested and reviewed on the date of this entry and was considered in the prescribing process. This dictation was created using voice recognition software. Phonetic and/or grammatical errors may exist.
[2022-01-21] MEDS: Aspirin 81 MG TAB.CHEW PO (08:07)
[2022-01-21] MEDS: Folic Acid 1 MG Tablet PO (08:07)
[2022-01-21] MEDS: Famotidine 20 MG Tablet PO (08:08)
[2022-01-21] MEDS: Doxycycline 100 MG CAPSULE PO (08:08)
[2022-01-21] MEDS: Hydroxychloroquine 200 MG Tablet PO (08:08)
[2022-01-21] MEDS: Montelukast 10 MG Tablet PO (08:08)
[2022-01-21] MEDS: Senna/Docusate Sodium 1 Tablet 2 TABLET PO (08:08)
--- NOTE | 2022-01-21 09:15 | PCM.PN.HOSP ---
Subjective Subjective Was seen and examined today, she has no complaints of any chest pain or shortness of breath, orthopedic surgery is going to discharge the patient to home today. Objective Data Objective Data Vital Signs: Vital Signs Temp Pulse Resp BP Pulse Ox O2 Del Method O2 Flow Rate 97.7 F L 78 16 125/83 H 94 Room Air 2 01/21/22 02:50 01/21/22 02:50 01/21/22 02:50 01/21/22 02:50 01/21/22 02:50 01/21/22 07:59 01/21/22 02:50 Oxygen Flow Rate (L/min) 2 Oxygen Delivery Method Room Air Weight: 102 kg Body Mass Index (BMI) 41.3 Intake & Output: Intake and Output for Last 24 Hours 01/19/22 01/20/22 01/21/22 23:59 23:59 23:59 Intake Total 3482 / 3682 800 / 800 Output Total 100 / 100 Balance 3482 / 3682 700 / 700 Lab / Micro Data Result Diagrams: 01/21/22 04:23 01/20/22 06:00 Labs: Laboratory Results - last 24 hr 01/21/22 04:23: WBC 11.0, RBC 2.82 L, Hgb 9.2 L, Hct 28.1 L, MCV 99.6 H, MCH 32.6 H, MCHC 32.7, RDW Std Deviation 51.9 H, RDW Coeff of Rusty 14.3, Plt Count 265, MPV 9.9 Micro: Microbiology 01/19/22 13:34 Tissue - Knee Gram Stain - Final 01/19/22 13:34 Tissue - Knee Wound Culture - Preliminary No growth-Final to follow 01/19/22 13:32 Tissue - Knee Gram Stain - Final 01/19/22 13:32 Tissue - Knee Wound Culture - Preliminary No growth-Final to follow 01/19/22 13:29 Tissue - Knee Gram Stain - Final 01/19/22 13:29 Tissue - Knee Wound Culture - Preliminary No growth-Final to follow 01/19/22 11:15 Nasal Secretion SARS-CoV-2 Antigen (Rapid) - Final 01/03/22 09:43 Swab (Method) Nasal Screen MRSA/MSSA - Final Physical Exam Narrative alert, oriented x3, no apparent distress and healthy appearing Constitutional Narrative: Patient is morbidly obese General Appearance: cooperative, well kempt and well developed Orientation / Consciousness: awake, oriented to person, oriented to place and oriented to time HEENT normocephalic, head/scalp atraumatic and moist oral mucous membranes Eyes PERRL, EOMs intact bilaterally and conjunctivae normal Neck supple, no JVD, thyroid normal and no carotid bruits General: trachea midline Resp normal respiratory effort, no retractions, no use of accessory muscles and clear to auscultation bilaterally Auscultation: Negative for rales, rhonchi or wheezes Cardio regular rate, regular rhythm, S1 normal heart sound, S2 normal heart sound, no murmurs, no rub and no gallops GI normal to inspection, nondistended, normoactive bowel sounds, soft to palpation, non-tender and non-distended Skin no rashes or lesions noted General Skin Exam: no breakdown Neuro oriented x3, CN's II-XII intact bilaterally, no focal motor deficits and no sensory deficits noted Sensorium / Orientation: awake and alert Speech: speech normal Psych affect normal Assessment & Plan Assessment/Plan (1) Status post revision of total replacement of right knee: PLAN: Plan 1. 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
[2022-01-21 09:46] VITALS: BP 94/52; PULSE 66; RESP 18; TEMP 37; O2SAT 97
[2022-01-21 10:19] VITALS: BP 94/52; PULSE 66; RESP 18; TEMP 37; O2SAT 97
[2022-01-21 10:48] VITALS: BP 98/57; PULSE 69; RESP 18; TEMP 36.6; O2SAT 95
== END 2022-01-21 13:56 | disposition home or self-care (01) | DRG 467 ==
LOC: ACINP 10:46 → MS3 14:45
PROVIDERS: Anesthesiology; Admitting Provider Specialist; Referring Provider Specialist; Visit Provider Specialist
PROC: 0SPC0JZ Removal of Synthetic Substitute from Right Knee Joint, Open Approach (ICD-10-PCS; principal; 2022-01-19 12:55)
DX: T84.84XA Pain due to internal orthopedic prosthetic devices, implants and grafts, initial encounter (principal); D62 Acute posthemorrhagic anemia; Z68.41 Body mass index [BMI] 40.0-44.9, adult; E66.01 Morbid (severe) obesity due to excess calories; M06.9 Rheumatoid arthritis, unspecified; E03.9 Hypothyroidism, unspecified; F17.220 Nicotine dependence, chewing tobacco, uncomplicated; J45.909 Unspecified asthma, uncomplicated; M19.90 Unspecified osteoarthritis, unspecified site; I10 Essential (primary) hypertension; M25.561 Pain in right knee; M89.561 Osteolysis, right lower leg; Z96.651 Presence of right artificial knee joint; M89.79 Major osseous defect, multiple sites; Y79.2 Prosthetic and other implants, materials and accessory orthopedic devices associated with adverse incidents
CPT/HCPCS: 36415; 71046; 73560; 80048; 82040; 82962; 83036; 83735; 84443; 85025; 85027; 87015; 87070; 87075; 87081; 87102; 87116; 87176; 87205; 87206; 87426; 93005; 94640; 94762; 97110; 97162; 97166; 97530; 97535; 99251; C1776; J7120; G0463; J2405; J3475

== ENCOUNTER → 2023-03-24 | Outpatient (CLI) | payer MEDICARE, OTHER, SELFPAY ==
--- NOTE | 2023-03-24 11:03 | MRI_ITS ---
STUDY: MRI LUMBAR SPINE WITHOUT CONTRAST REASON FOR EXAM: Female, 67 years old. LUMBAR FACET ARTHROPATHY TECHNIQUE: Standardized fat and water weighted pulse sequences were obtained in the sagittal and axial planes. COMPARISON: None FINDINGS: T11-T12: (Sagittal only). Normal endplates. Normal disc height and hydration. Prominent left posterior paramedian ventral extradural defect is disc protrusion. Normal central canal and bilateral intervertebral neural foramina. T10-T11 and T12-L1: (Sagittal only). Normal endplates. Normal disc height, hydration and morphology. No ventral extradural defects. Normal central canal and bilateral intervertebral neural foramina. Normal lumbar lordosis. There is no substantial scoliosis. Normal conus medullaris that terminates at the lower L1 vertebral body level. L1-2: Normal endplates. Normal disc height. Minimal degenerative retrolisthesis of L1 on L2 causing mild ventral extradural defect in the posterior bulging annulus. No significant facet arthropathy. Normal central canal and bilateral lateral recesses. Normal bilateral intervertebral neural foramina. L2-3: Normal endplates. Normal disc height. Mild degenerative anterolisthesis of L2 on L3. Mild bilateral degenerative facet arthropathy. Mild dorsal epidural lipomatosis. Moderately pronounced flattening central canal stenosis with an AP canal diameter of 5 mm. This accounts for the redundancy of the cauda equina above the L2-L3 disc space. Normal bilateral lateral recesses. Normal bilateral intervertebral neural foramina. Prominent right-sided L3 benign vertebral body hemangioma. L3-4: Normal endplates. Minimal disc space height narrowing. Mild ventral extradural defect due to posterior bulging annulus. Moderate left degenerative facet arthropathy. Mild to moderate right degenerative facet arthropathy. Pronounced central canal stenosis with an AP canal diameter of 4.5 mm. Mild dorsal epidural lipomatosis. Normal bilateral lateral recesses. Mild stenosis of the bilateral intervertebral neural foramina. Prominent right L3 benign vertebral body hemangioma and small left L3 anterior lower benign vertebral body hemangioma. L4-5: Mixed Modic type II and type III degenerative changes of the vertebral marrow underneath the vertebral endplates. Pronounced disc space height narrowing. Grade 1 degenerative anterolisthesis of L4 on L5. Prominent left posterior paramedian cephalad disc protrusion. Moderately pronounced bilateral degenerative facet arthropathy. Pronounced central canal stenosis with an AP canal diameter of 4 mm. Moderate stenosis of the bilateral lateral recesses. Pronounced stenosis of the left intervertebral neural foramen with impingement of the left L4 nerve and moderate stenosis of the right intervertebral neural foramen. L5-S1: Mild Modic type I degenerative vertebral marrow edema underneath the anterior aspect of the vertebral endplates. Minimal disc space height narrowing. Mild ventral extradural defect due to posterior bulging annulus. Moderate left degenerative facet arthropathy with fluid inside the facet joint. Mild right degenerative facet arthropathy with minimal fluid inside the facet joint. Normal central canal and bilateral lateral recesses. Moderately pronounced stenosis of the left intervertebral neural foramen with impingement of the left L5 nerve. Mild stenosis of the right intervertebral neural foramen. Left S1 benign vertebral body hemangioma. Normal visualized sacral ala. Normal visualized paraspinous soft tissue structures. MRI/Spine Lumbar (Routine) IMPRESSION: 1. Severe central canal stenosis at L4-L5 disc space level with an AP canal diameter of 4 mm, grade 1 degenerative anterolisthesis of L4 on L5, pronounced L4-L5 degenerative disc space height narrowing, prominent left L4-L5 posterior paramedian cephalad disc protrusion, pronounced stenosis of the left intervertebral neural foramen with impingement of the left L4 nerve and moderate stenosis of the right intervertebral neural foramen. 2. Pronounced central canal stenosis at L3-L4 disc space level with an AP canal diameter of 4.5 mm, small posterior bulging annulus, prominent right L3 vertebral body hemangioma and small left lower anterior L3 benign vertebral body hemangioma. 3. Moderately pronounced flattening central canal stenosis at L2-L3 disc space level with an AP canal diameter 5 mm and mild degenerative anterolisthesis of L2 on L3. 4. Mild anterior L5-S1 intervertebral osteochondritis and moderately pronounced stenosis of the left L5-S1 intervertebral neural foramen with impingement of the left L5 nerve. Electronically Signed: Ken Rodriguez MD at 12:46 EST ,
== END | disposition home or self-care (01) ==
LOC: MRI 10:51
PROVIDERS: Referring Provider Clinical Nurse Specialist Adult Health; Visit Provider Clinical Nurse Specialist Adult Health
DX: M51.36 Other intervertebral disc degeneration, lumbar region (principal); M46.96 Unspecified inflammatory spondylopathy, lumbar region
CPT/HCPCS: 72148

== ENCOUNTER 2024-01-22 09:26 | Inpatient (IN) | payer MEDICARE, OTHER, SELFPAY ==
[2024-01-22 09:27] VITALS: BP 117/76; PULSE 91; RESP 18; TEMP 36.8; O2SAT 96; BMI 37.1
--- NOTE | 2024-01-22 09:56 | EDS_ITS ---
HPI History of Present Illness Chief Complaint: Lower Extremity Injury Informant: patient and spouse/S.O. Narrative Narrative: History of left total knee replacement [address] Briggs. History of right knee revision last year by Dr. Vela. Increasing left knee pain and swelling since yesterday's has progressed. Yesterday had chills. She states she walked a 45 degree hill yesterday prior to symptoms occurring. There is no trauma no twisting injuries. Swelling increased with increasing pain. Symptoms not relieved with Tylenol at home. Multiple allergies to tolerate Dilaudid with her surgery in the past. Patient spouse drove here from [facility] secondary to her specialist being here. Prior similar symptoms: No PFSH PFSH Medical History Wears glasses Thyroid disease Ambulates with cane Rheumatoid arthritis Arthritis Anemia Back pain Migraine headache Injury of head and neck Gastric reflux Non-smoker Asthma Leg cramps History of pain when walking History of edema History of echocardiogram Hypertension Home Medications ?Medication ?Instructions ?Recorded ?Last Taken ?Type albuterol sulfate 90 mcg/actuation 1 inh inhalation Q6H PRN ALLERGIES 01/04/22 Unknown History aerosol inhaler cetirizine 10 mg capsule (Zyrtec) 10 mg PO DAILY Check with primary 01/04/22 01/22/24 History doctor cholecalciferol (vitamin D3) 50 50 mcg PO TU Check with primary 01/04/22 01/16/24 History mcg (2,000 unit) capsule (Vitamin doctor D3) epinephrine 0.3 mg/0.3 mL 0.3 mg IM Q4H PRN Anaphylaxis 01/04/22 Unknown History injection, auto-injector fluticasone 250 mcg-salmeterol 50 1 inh inhalation BID Check with 01/04/22 Unknown History mcg/dose blistr powdr for primary doctor inhalation (Advair Diskus) folic acid 1 mg tablet 1 mg PO DAILY Check with primary 01/04/22 01/22/24 History doctor hydroxychloroquine 200 mg tablet 200 mg PO BID Check with primary 01/04/22 01/22/24 History (Plaquenil) doctor levothyroxine 100 mcg capsule 100 mcg PO QHS Check with primary 01/04/22 01/21/24 History doctor lisinopril 10 mg tablet 10 mg PO QHS Check with primary 01/04/22 01/21/24 History doctor methotrexate sodium 2.5 mg tablet 25 mg PO TU Check with primary 01/04/22 01/16/24 History doctor montelukast 10 mg tablet 10 mg PO DAILY Check with primary 01/04/22 01/22/24 History (Singulair) doctor acetaminophen 500 mg capsule 1,000 mg PO QHS 01/22/24 01/21/24 History diphenhydramine HCl 25 mg capsule 50 mg PO QHS 01/22/24 01/21/24 History (Allergy (diphenhydramine)) Allergy/AdvReac Type Severity Reaction Status Date / Time etodolac Allergy Unknown Hives Verified 01/22/24 13:25 amoxicillin (From Augmentin) Allergy Hives Verified 01/22/24 13:25 clarithromycin (From Biaxin) Allergy Hives Verified 01/22/24 13:25 clavulanic acid (From Allergy Hives Verified 01/22/24 13:25 Augmentin) Environmental Allergies: Allergy Anaphylaxis Verified 01/22/24 09:26 Uncoded erythromycin base Allergy Hives Verified 01/22/24 13:25 NSAIDS (Non-Steroidal Allergy Hives Verified 01/22/24 09:26 Anti-Inflamma oxycodone (From Percodan) Allergy Hives Verified 01/22/24 13:25 Penicillins Allergy Hives Verified 01/22/24 13:25 sesame oil Allergy Anaphylaxis Verified 01/22/24 13:25 tramadol Allergy Hives Verified 01/22/24 13:25 tree nut Allergy Anaphylaxis Verified 01/22/24 13:25 Surgical History History of prior ablation treatment Hx of colonoscopy Hx of arthroscopy of left knee Hx of arthroscopy of right knee Hx of arthroscopy of shoulder Hx of appendectomy Hx of hysterectomy Hx of total knee arthroplasty Hx of total knee arthroplasty Social History Smoking Status: Never smoker ROS ROS ED Constitutional Constitutional ED: Reports chills; Denies fever(s) or sweats Eyes Eyes: Denies change in vision ENT ENT ED: Denies dysphagia or sore throat Cardiovascular Cardiovascular: Denies chest pain, leg edema, palpitations or racing heartbeat Respiratory/Chest Respiratory/Chest: Denies cough, dyspnea or dyspnea on exertion Gastrointestinal Gastrointestinal: Denies abdominal pain, diarrhea, nausea or vomiting Genitourinary Genitourinary ED: Denies dysuria, hematuria or urinary frequency Musculoskeletal Musculoskeletal: Reports extremity pain; Denies back pain or neck pain Integumentary Denies rash or wounds Neurologic Neurologic: Denies headache(s), paresthesias or weakness EXAM Physical Exam Const Vital Signs: 01/22/24 09:27 01/22/24 13:26 Temperature 98.3 F Temperature Source Oral Pulse Rate 91 78 Respiratory Rate 18 16 Blood Pressure 117/76 107/66 Blood Pressure Mean 89 79 Pulse Ox 96 99 Oxygen Delivery Method Room Air Room Air Positive well nourished and well developed General Appearance ED: well developed and NAD HEENT Reports moist mucous membranes normocephalic and atraumatic Eyes EOMs intact bilaterally and conjunctivae normal General Eye ED: Yes normal appearance of both eyes Neck no lymphadenopathy and supple General: Negative for tenderness Chest Wall Chest: Negative for tenderness Resp normal respiratory effort and normal air movement Effort and Inspection: symmetric chest movement; Negative for respiratory distress Cardio regular rate, regular rhythm and no murmurs Peripheral Pulses: pulses 2+ throughout GI normal to inspection, nondistended, normoactive bowel sounds and non-tender Palpation: Negative for guarding or rebound tenderness present Back/Spine no CVA tenderness and no thoracic nor lumbar tenderness Extremity Extremity Narrative: Left lower extremity: Suprapatellar swelling no redness there is mild warmth to the knee. Pain with any movement of the knee. Midline scar noted. Soft compartments. Neuro vas intact distally. General Extremety ED: Yes edema and tenderness General Extremity: edema Neuro oriented x3 and no sensory deficits noted Sensorium / Orientation: awake and alert Skin no rashes or lesions noted and no wounds MDM MDM MDM Narrative Medical decision making narrative: Interventions / MDM: Differential diagnosis: Infected prosthetic joint, left knee effusion, left knee pain Diagnosis considered but do not suspect: N/A My EKG interpretation: N/A Imaging independently reviewed and interpreted by myself: 2 view x-ray left knee: Moderate joint effusion also read by radiologist. Prosthesis intact. External documents reviewed: N/A Test considered but not ordered:N/A ED course: Vital stable afebrile. Increasing pain swelling minimal warmth of the knee. She has history of prosthetic knee. Will check labs inflammatory markers. Will check x-ray. IV Dilaudid for pain control. Will plan on discussing with orthopedics for evaluation. 1130: White count 7.8 CRP 86.8. Moderate joint effusion on x-ray. I discussed with her orthopedist Dr. Vela, would like joint aspiration to rule out infection. Prosthesis, he cleared this to be far under sterile conditions by myself. I will consent the patient for this procedure. 1205: Written consent obtained for joint aspiration with the patient. Performed sterile conditions. Patient is needle placed in 30 degree position of flexion. Betadine preparation medial aspect of the joint, sterile gloves used. 10 cc syringe with 18-gauge needle advanced medially, after nearly hubbing the 1.5 inch needle, synovial fluid return cloudy first 10 cc. Additional 20 cc removed with a new clean syringe with more yellow fluid. Needle was removed, bandage was placed. Patient tolerated procedure well. 1315: Crystals negative, synovial fluid with 15, 682 white cells. Synovial neutrophils 84. Cultures are pending. Secondary to her prosthetic joint, this is concerning for infection. I spoke with orthopedist on-call Dr. Latif covering for Dr. Vela, discussed the findings. He would like to keep her NPO. Antibiotics deferred to medicine team. IV antibiotics vancomycin will be started in the ED. They would like patient admitted to medicine, plan of care will be per orthopedic team. Hospitalist placed a page for admission. I spoke with Dr. Salgado for admission. Re-evaluation: stable Disposition discussed with patient/family/significant other: Patient significant other Case discussed with consulting clinician: Orthopedics, hospitalist This note was generated with [employer] dictation software. It may contain incorrect words, spelling, and punctuation that were not noted in checking the note before signing. Lab Data Attestation: I reviewed the patient's lab results. Labs: Laboratory Results - last 24 hr 01/22/24 01/22/24 10:06 12:13 WBC 7.8 RBC 3.82 L Hgb 11.7 L Hct 35.3 L MCV 92.4 MCH 30.6 MCHC 33.1 RDW Std Deviation 48.1 H RDW Coeff of Rusty 14.3 Plt Count 332 MPV 9.4 Immature Gran % (Auto) 0.400 Neut % (Auto) 68.1 Lymph % (Auto) 18.1 L Woods % (Auto) 12.0 H Eos % (Auto) 1.3 Baso % (Auto) 0.1 Absolute Neuts (auto) 5.3 Absolute Lymphs (auto) 1.40 Nucleated RBC % 0 ESR 14 Sodium 136 Potassium 3.5 Chloride 105 Carbon Dioxide 24.0 Anion Gap 7 BUN 11 Creatinine 0.94 Estim Creat Clear Calc 59.65 Est GFR (MDRD) Af Amer 76 Est GFR (MDRD) Non-Af 63 BUN/Creatinine Ratio 11.8 Glucose 131 H Calcium 8.8 C-React Prot Ext Range 86.80 H Fluid Source Cancelled Fluid Color Cancelled Fluid Appearance Cancelled Fluid WBC Cancelled Fluid RBC Cancelled Fluid Tot Cell Count Cancelled Fld Polynuclear WBCs # Cancelled Fld Polynuclear WBCs % Cancelled Fluid Mononuclear WBCs Cancelled Fld Mononuclear WBCs % Cancelled Fluid Neutrophils Cancelled Fluid Lymphocytes Cancelled Fluid Monocytes Cancelled Fluid Plasma Cells Cancelled Fluid Macrophages Cancelled Fld Mesothelial Cells Cancelled Fluid Other Cells Cancelled Fluid Crystals NO CRYSTALS SEEN Fluid Crystal Source SYNOVIAL Fl Crystal Path Review Will follow Fl Pathologist Comment Cancelled Fluid Comment 2 Cancelled Synovial Source LEFT KNEE Synovial Color Yellow Synovial Appearance Cloudy Synovial Viscosity Sl. Viscous Synovial WBC 15.6820 H Synovial RBC [address] 15.7260 H Synov Polynuclear WBCs 6.794 Synov Mononuclear WBCs 1.047 Synovial Neutrophils 84 H Synovial Lymphocytes 5 Synovial Monocytes 11 Synovial Polynuclear % 86.6 Synovial Mononuclear % 13.[address] Comment May follow Radiography Diagnostic Testing: Clinical Impression(s) from Imaging Studies Knee X-Ray 01/22/24 10:15 IMPRESSION: Status post total knee replacement. There is good alignment. Moderate-sized joint effusion. Electronically Signed: Steve Daily MD at 10:23 EST , Discharge Plan Dx/Rx/DC Orders Clinical Impression: Prosthetic joint infection, Infection of prosthetic left knee joint, Left knee pain, Hx of rheumatoid arthritis Disposition Disposition: Acute Care Hospital [facility] Discharge Date/Time: 01/22/24 14:52
[2024-01-22] MEDS: HYDROmorphone 0.5 MG/0.5 ML SYRINGE IV ×6 (10:03→23:12)
--- NOTE | 2024-01-22 10:15 | RAD_ITS ---
STUDY: X-RAY - LEFT KNEE REASON FOR EXAM: Female, 68 years old. Atraumatic knee pain. TECHNIQUE: 2 view(s) of the knee. COMPARISON: None. FINDINGS: Normal visualized distal femur. Normal visualized proximal tibia and fibula. Normal proximal tibiofibular articulation. The patient is status post total knee replacement. There is good alignment. Moderate-sized joint effusion. RAD/Knee 1 or 2 Views IMPRESSION: Status post total knee replacement. There is good alignment. Moderate-sized joint effusion. Electronically Signed: Steve Daily MD at 10:23 EST ,
[2024-01-22 10:16] LABS: Erythrocyte Sedimentation Rate 14 mm/hr (0-30)
[2024-01-22 10:18] LABS: Absolute Neutrophil Count 5.3 X10^3/uL (2.0-7.7); Basophil# 0.01 X10^3/uL; Basophil% 0.1 % (0-1); Eosinophils% 1.3 % (0-5); Hematocrit 35.3 % (37-47); Hemoglobin 11.7 g/dL (12.0-15.0); Lymphocyte % 18.1 % (19-41); Mean Corp Hgb Conc 33.1 g/dL (32-36); Mean Corpuscular Hgb 30.6 pg (27.0-32.0); Mean Corpuscular Volume 92.4 fL (81-99); Mean Platelet Vol. 9.4 fl (6.2-12.0); Monocyte# 0.93 X10^3/uL; NRBC Flagged by Analyzer 0 % (0-5); Neutrophil # 5.28 X10^3/uL (2.7-7.7); Neutrophil % 68.1 % (47-70); POSITIVE MORPHOLOGY YES; Platelet Count 332 K/mm3 (150-450); RBC Distribution Width CV 14.3 % (11.6-14.6); RBC Distribution Width SD 48.1 fl (35.1-43.9); Red Blood Count 3.82 M/mm3 (4.2-5.4); White Blood Count 7.8 K/mm3 (4.4-11.0)
[2024-01-22 10:23] LABS: Differential Indicated SCAN CRITERIA MET
[2024-01-22 10:33] LABS: Anion Gap 7 (5-15); BUN 11 mg/dL (7-18); BUN/Creat Ratio 11.8 RATIO (10-20); Calcium,Total 8.8 mg/dL (8.5-10.1); Chloride 105 mmol/L (98-107); Creatinine, Serum 0.94 mg/dL (0.55-1.02); EST Glomerular Filtration Rate 63 mL/min (>60); Est Glom Filt Rate - Afr Amer 76 mL/min (>60); Estimated Creatinine Clearance 59.65 ml/min; Glucose 131 mg/dL (74-106); Potassium 3.5 mmol/L (3.5-5.1); Sodium Level 136 mmol/L (136-145)
[2024-01-22 12:46] LABS: AUTO B FLUID DILUENT BKGD CT WBC <0.1 RBC <0.01 (W<.1,R<.01); CRYSTALS, BODY FLUID NO CRYSTALS SEEN; Pathologist Comment May follow; Source- Body Fluid SYNOVIAL
[2024-01-22 12:47] LABS: Appearance /Synovial Fluid Cloudy (CLEAR); Color / Synovial Fluid Yellow (Pale Yellow); RBC /Synovial Fluid 0 /mm3 (0); Source / Synovial Fluid LEFT KNEE; Viscosity / Synovial Fluid Sl. Viscous (HIGH)
[2024-01-22 12:48] LABS: Synovial Fld Mononuclear WBC # 1.047 10^3/ul; Synovial Fld Mononuclear WBC % 13.4 %; Synovial Fld Polynuclear WBC # 6.794 10^3/uL; Synovial Fld Polynuclear WBC % 86.6 %
[2024-01-22 12:52] LABS: Body Fluid QC Type(s) BF1,BF2,BF3
[2024-01-22 13:09] LABS: Lymph 5 %; Monocyte /Synovial Fluid 11 %; Neutrophil 84 % (0-25)
[2024-01-22 13:10] LABS: Pathologist Review Will follow
--- NOTE | 2024-01-22 13:21 | PCM.HP.STD ---
HPI - General General Date of Admission: 01/22/24 Date of Service: 01/22/24 Chief Complaint: Left knee pain and swelling HPI Narrative ARIEL BADILLO, is a 68 F who presented to [facility] ED on 01/22/2024 with left knee pain and swelling. Patient had a left total knee replacement [place] [address] Castro. She also had a right total knee [place] [address] Briggs that required a revision surgery with Dr. Vela in 2021. She has had no significant issues with the left knee since the surgery. Patient previously lived in [place] but now lives down in the [facility]. Patient developed fairly acute left knee pain and swelling yesterday afternoon. States she was walking a 45 degree hill yesterday prior to symptoms occurring but had no pain with this, and she denies any falls or trauma. Does state that she recently had a mild gastroenteritis with diarrhea and the symptoms improved about 2 days ago, and she was concerned that the infection then went to her knee. She had continued significant pain and swelling this morning and drove up to a hospital with her for further evaluation. On arrival to the ED, patient had a low-grade fever of 99.3F but was otherwise hemodynamically stable. Lab notable for normal WBC count of 7 but CRP elevated at 86. Left knee x-ray showed a moderate-sized joint effusion with prior total knee replacement noted with good alignment. ED physician discussed with Dr. Vela who recommended joint aspiration in the ED. Joint aspiration was done with 30 cc of fluid removed. The initial 10 cc were cloudy with the next 20 cc more clear yellowish fluid. Synovial fluid was significant for over 15K white blood cells with 84% neutrophils. Given concern for prosthetic joint infection, hospitalist was then contacted for admission. I saw the patient at bedside in the ED, was present. Patient was sitting up comfortably in bed, conversing normally, in no acute distress. She had been given 2 doses of IV Dilaudid since arrival and stated these were helpful for her pain, but the most recent dose of Dilaudid was starting to wear off. She otherwise denied any fevers or chills or any other pain or discomfort. Will be admitted for further management. [facility] Medical History (Updated 01/22/24 @ 15:20 by Hilaria Khanna) Wears glasses Thyroid disease Ambulates with cane Rheumatoid arthritis Arthritis Anemia Back pain Migraine headache Injury of head and neck Gastric reflux Non-smoker Asthma Leg cramps History of pain when walking History of edema History of echocardiogram Hypertension Home Medications ?Medication ?Instructions ?Recorded ?Last Taken ?Type albuterol sulfate 90 mcg/actuation 1 inh inhalation Q6H PRN ALLERGIES 01/04/22 Unknown History aerosol inhaler cetirizine 10 mg capsule (Zyrtec) 10 mg PO DAILY Check with primary 01/04/22 01/22/24 History doctor cholecalciferol (vitamin D3) 50 50 mcg PO TU Check with primary 01/04/22 01/16/24 History mcg (2,000 unit) capsule (Vitamin doctor D3) epinephrine 0.3 mg/0.3 mL 0.3 mg IM Q4H PRN Anaphylaxis 01/04/22 Unknown History injection, auto-injector fluticasone 250 mcg-salmeterol 50 1 inh inhalation BID Check with 01/04/22 Unknown History mcg/dose blistr powdr for primary doctor inhalation (Advair Diskus) folic acid 1 mg tablet 1 mg PO DAILY Check with primary 01/04/22 01/22/24 History doctor hydroxychloroquine 200 mg tablet 200 mg PO BID Check with primary 01/04/22 01/22/24 History (Plaquenil) doctor levothyroxine 100 mcg capsule 100 mcg PO QHS Check with primary 01/04/22 01/21/24 History doctor lisinopril 10 mg tablet 10 mg PO QHS Check with primary 01/04/22 01/21/24 History doctor methotrexate sodium 2.5 mg tablet 25 mg PO TU Check with primary 01/04/22 01/16/24 History doctor montelukast 10 mg tablet 10 mg PO DAILY Check with primary 01/04/22 01/22/24 History (Singulair) doctor acetaminophen 500 mg capsule 1,000 mg PO QHS 01/22/24 01/21/24 History diphenhydramine HCl 25 mg capsule 50 mg PO QHS 01/22/24 01/21/24 History (Allergy (diphenhydramine)) Allergy/AdvReac Type Severity Reaction Status Date / Time etodolac Allergy Unknown Hives Verified 01/22/24 13:25 amoxicillin (From Augmentin) Allergy Hives Verified 01/22/24 13:25 clarithromycin (From Biaxin) Allergy Hives Verified 01/22/24 13:25 clavulanic acid (From Allergy Hives Verified 01/22/24 13:25 Augmentin) Environmental Allergies: Allergy Anaphylaxis Verified 01/22/24 09:26 Uncoded erythromycin base Allergy Hives Verified 01/22/24 13:25 NSAIDS (Non-Steroidal Allergy Hives Verified 01/22/24 09:26 Anti-Inflamma oxycodone (From Percodan) Allergy Hives Verified 01/22/24 13:25 Penicillins Allergy Hives Verified 01/22/24 13:25 sesame oil Allergy Anaphylaxis Verified 01/22/24 13:25 tramadol Allergy Hives Verified 01/22/24 13:25 tree nut Allergy Anaphylaxis Verified 01/22/24 13:25 Surgical History (Updated 01/22/24 @ 15:20 by Hilaria Khanna) History of prior ablation treatment Hx of colonoscopy Hx of arthroscopy of left knee Hx of arthroscopy of right knee Hx of arthroscopy of shoulder Hx of appendectomy Hx of hysterectomy Hx of total knee arthroplasty Hx of total knee arthroplasty Social History Smoking Status: Never smoker ROS Constitutional Constitutional: Denies chills, fatigue, fever(s) or weakness Cardiovascular Cardiovascular: Denies chest pain Respiratory/Chest Respiratory/Chest: Denies shortness of breath at rest Gastrointestinal Gastrointestinal: Denies abdominal pain Musculoskeletal Musculoskeletal: Reports joint pain and joint swelling Vital Signs Vital Signs Vital Signs: 01/22/24 09:27 Temperature 98.3 F Temperature Source Oral Pulse Rate 91 Respiratory Rate 18 Blood Pressure 117/76 Blood Pressure Mean 89 Pulse Ox 96 Oxygen Delivery Method Room Air Weight Weight: 92.079 kg Body Mass Index (BMI) 37.1 Physical Exam Const alert, oriented x3 and no apparent distress Constitutional Narrative: Elderly female, obese, sitting up comfortably in bed, conversing normally, in no acute distress. General Appearance: cooperative and comfortable HEENT normocephalic, head/scalp atraumatic, hearing grossly normal bilaterally, nasal mucous membranes and turbinates normal and moist oral mucous membranes Eyes PERRL, EOMs intact bilaterally and conjunctivae normal Neck full ROM Chest inspection of chest normal Resp normal respiratory effort, normal air movement, no use of accessory muscles and clear to auscultation bilaterally Cardio regular rate, regular rhythm, no murmurs and peripheral pulses 2+ throughout GI normal to inspection, nondistended, normoactive bowel sounds, soft to palpation, non-tender and non-distended Back/Spine normal ROM Extremity Extremity Narrative: Left knee with bandage in place over joint aspiration site. Mild swelling with tenderness to palpation diffusely around knee, no erythema noted. Psych mental status grossly normal Results Lab / Micro Data 01/22/24 10:06 01/22/24 10:06 Labs: Laboratory Results - last 24 hr 01/22/24 10:06: WBC 7.8, RBC 3.82 L, Hgb 11.7 L, Hct 35.3 L, MCV 92.4, MCH 30.6, MCHC 33.1, RDW Std Deviation 48.1 H, RDW Coeff of Rusty 14.3, Plt Count 332, MPV 9.4, Immature Gran % (Auto) 0.400, Neut % (Auto) 68.1, Lymph % (Auto) 18.1 L, [place] % (Auto) 12.0 H, Eos % (Auto) 1.3, Baso % (Auto) 0.1, Absolute Neuts (auto) 5.3, Absolute Lymphs (auto) 1.40, Nucleated RBC % 0, ESR 14, Sodium 136, Potassium 3.5, Chloride 105, Carbon Dioxide 24.0, Anion Gap 7, BUN 11, Creatinine 0.94, Estim Creat Clear Calc 59.65, Est GFR (MDRD) Af Amer 76, Est GFR (MDRD) Non-Af 63, BUN/Creatinine Ratio 11.8, Glucose 131 H, Calcium 8.8, C-React Prot Ext Range 86.80 H 01/22/24 12:13: Fluid Source Cancelled, Fluid Color Cancelled, Fluid Appearance Cancelled, Fluid WBC Cancelled, Fluid RBC Cancelled, Fluid Tot Cell Count Cancelled, Fld Polynuclear WBCs # Cancelled, Fld Polynuclear WBCs % Cancelled, Fluid Mononuclear WBCs Cancelled, Fld Mononuclear WBCs % Cancelled, Fluid Neutrophils Cancelled, Fluid Lymphocytes Cancelled, Fluid Monocytes Cancelled, Fluid Plasma Cells Cancelled, Fluid Macrophages Cancelled, Fld Mesothelial Cells Cancelled, Fluid Other Cells Cancelled, Fluid Crystals NO CRYSTALS SEEN, Fluid Crystal Source SYNOVIAL, Fl Crystal Path Review Will follow, Fl Pathologist Comment Cancelled, Fluid Comment 2 Cancelled, Synovial Source LEFT KNEE, Synovial Color Yellow, Synovial Appearance Cloudy, Synovial Viscosity Sl. Viscous, Synovial WBC 15.6820 H, Synovial RBC 0, Synovial Tot Cell Ct 15.7260 H, Synov Polynuclear WBCs 6.794, Synov Mononuclear WBCs 1.047, Synovial Neutrophils 84 H, Synovial Lymphocytes 5, Synovial Monocytes 11, Synovial Polynuclear % 86.6, Synovial Mononuclear % 13.4, Synovial Path Comment May follow Imaging Radiology Impression Knee X-Ray 01/22/24 10:15 IMPRESSION: Status post total knee replacement. There is good alignment. Moderate-sized joint effusion. Electronically Signed: Steve Daily MD at 10:23 EST , Assessment & Plan Assessment/Plan (1) Infection of prosthetic left knee joint: (2) Left knee pain: PLAN: Plan Patient is a 68-year-old female who presented [facility] ED on 01/22/2024 with worsening left knee pain and swelling. 1. 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 Admit under inpatient dose to [facility]. Orthopedic surgery consulted. PT/OT/case management consulted. Presented with worsening left knee pain and swelling, has history of left total knee replacement back in 2006. Left knee x-ray showed a moderate joint effusion with hardware in good position. Left knee joint aspiration done in the ED, synovial fluid showed greater than 15K WBC with 84% neutrophils. Fluid cultures pending. Will treat with IV vancomycin and ceftriaxone for now. Pain control with scheduled Tylenol and low-dose IV Dilaudid as needed. N.p.o. at midnight for likely procedure with orthopedics tomorrow. 2. Multiple drug allergies ? Notably has allergies listed to penicillin antibiotics and several pain medications including oxycodone, tramadol and NSAIDs. The allergy listed for all of these medications is hives. 3. Chronic anemia ? Hemoglobin 11.7 on admit. Last hemoglobin values in our system are from 2021 and hemoglobin was between 9-10 then. Suspect patient is at her baseline. Follow-up a.m. CBC to confirm hemoglobin remains stable. Chronic medical conditions: ? Obesity: BMI 38 on admit. Complicates hospital course, care and prognosis. ? Rheumatoid arthritis: Stable. Continue home Plaquenil, methotrexate weekly and folic acid. ? Hypothyroidism: Continue home Synthroid. ? Hypertension: Holding home lisinopril for now, restart when able. ? Seasonal allergies: Continue home Zyrtec, Singulair and Benadryl at night. ? History of right total knee replacement with revision surgery in 2021 DVT prophylaxis: Lovenox CODE STATUS: Full code, verified Expected disposition: TBD Total clinical time spent by myself addressing the patient's medical issues, reviewing all the data, and collaborating with patient's care team: 55 minutes. Charges/Coding Visit Charges Inpatient E&M: 90325 Init Hosp L2
[2024-01-22 13:26] VITALS: BP 107/66; PULSE 78; RESP 16; O2SAT 99
[2024-01-22] MEDS: Vancomycin HCl 2,000 MG in 0.9% Normal Saline (500mL Bag) 500 ML 250 MG IV (13:40)
[2024-01-22 14:47] VITALS: BP 99/62; PULSE 77; RESP 16; TEMP 36.8; O2SAT 99
--- NOTE | 2024-01-22 15:02 | CASEMGMT ---
Care Management Face to Face with patient for initial transition planning/care coordination assessment.?This business writer and MARIA ALEJANDRA Goins met with patient in the ED, introducing selves and roles at [facility]. Patient lying in bed, alert and oriented. Patient willing to participate in assessment and is able to answer all questions appropriately. Care providers, pharmacy, and demographics verified. Admitting Diagnosis: prosthetic knee infection Other diagnosis history: thyroid disease, rheumatoid arthritis, hypertension PCP: Wicho Morataya ([place], [place]) Specialists: Dr. Cabrera ([facility]). Biomedical Engineering Internship at [employer]. Dr Kristian Vela (orthopedic surgeon in [place]). Preferred Pharmacy: [facility] in [place] Insurance: Medicare Part A + B (primary). [facility] [place] (secondary). Prescription Benefit:?Medicare D, Silver Script through [employer] Living Will/HPOA: Patient states she has these and they should be on file due to [facility]. LNOK: Patient's , Michael, but he likes to be called Rajesh (his middle name). Patient states she has 4 daughters that all live local to [place]. Living Arrangements: Patient lives in a 1 story home that is handicap accessible. Transportation: Patient and her both drive and have reliable transportation. DME: Patient has a nebulizer, grab bars, walk in shower, and reachers. Patient reportedly has a walker that is currently being used by a family member, but patient reports having the ability to gain one if needed. HHC: Patient denies past HHC. Patient has done outpatient physical therapy through [facility] in [place]. Community Resources: None Behavioral Health History: None Patient goals: Patient wishes to discharge home, but patient expresses that their family all lives locally if she would need to stay with a relative after discharge. Patient?s mother and father are 91 and 94 years old, respectively, and they live in [place]. Patient?s sister lives in [place]. Disposition Plan: anticipate to discharge home when medically ready; RN CM/SW to follow for discharge planning needs that may arise. Ariana Vergara, [employer], CHILD ADVOCATE
[2024-01-22 15:05] VITALS: BP 109/65; PULSE 79; RESP 18; TEMP 37.4; O2SAT 98
[2024-01-22 15:16] VITALS: BMI 38.0
[2024-01-22] MEDS: Acetaminophen 325 MG Tablet 650 MG PO (15:44)
[2024-01-22] MEDS: 0.9% Saline Lock 10 ML Syringe IV ×3 (15:48→19:16)
[2024-01-22 15:57] VITALS: PULSE 90
--- NOTE | 2024-01-22 16:23 | PCM.RX.CS ---
Consult Antibiotic Management Pharmacy has been consulted to manage selected antibiotic: Vancomycin Type of Intervention Type of Consult: New start Suspected Infection Suspected Infection: Other Labs Labs: Sodium 136 mmol/L (136-145) 01/22/24 10:06 Potassium 3.5 mmol/L (3.5-5.1) 01/22/24 10:06 Chloride 105 mmol/L (98-107) 01/22/24 10:06 Carbon Dioxide 24.0 mmol/L (21.0-32.0) 01/22/24 10:06 Anion Gap 7 (5-15) 01/22/24 10:06 BUN 11 mg/dL (7-18) 01/22/24 10:06 Creatinine 0.94 mg/dL (0.55-1.02) 01/22/24 10:06 Est GFR (MDRD) Af Amer 76 mL/min (>60) 01/22/24 10:06 Est GFR (MDRD) Non-Af 63 mL/min (>60) 01/22/24 10:06 BUN/Creatinine Ratio 11.8 RATIO (10-20) 01/22/24 10:06 Glucose 131 mg/dL (74-106) H 01/22/24 10:06 Microbiology Microbiology: Microbiology 01/22/24 12:13 Fluid - Synovial (joint) Gram Stain - Final Goal Trough Goal Trough: 15-20 mcg/mL Pharmacy Plan for Drug Dosing Pharmacy Plan for Drug Dosing: NEW START IV VANCOMYCIN Consulting Physician: Dr. Salgado Indication: Prosthetic knee infection Goal Trough: 15-20 SrCr: 0.94 CrCl: 59 mL/min Comments: Patient had loading dose of 2000mg IV x1 in ED 01/22/24 @1340 Vancomycin Dose: 1000mg IV Q12hr to start 01/23/24 @0200 Pending Level: 01/24/24 @0130, prior to 4th total dose of vancomycin per protocol Pharmacy Service will continue to monitor and adjust dosing as required.
[2024-01-22] MEDS: Ceftriaxone 2 GM in 0.9% Normal Saline (50mL MB+) 50 ML IV (16:31)
[2024-01-22] MEDS: Ondansetron 4 MG/2 ML Vial IV (18:01)
[2024-01-22 20:18] VITALS: BP 104/61; PULSE 77; RESP 16; TEMP 37.1; O2SAT 96
[2024-01-22] MEDS: DiphenhydrAMINE 25 MG Capsule 50 MG PO (21:28)
[2024-01-23] VITALS (16 sets, daily range): BP systolic 102–141; BP diastolic 62–86; PULSE 79–109; RESP 16–20; TEMP 36.4–40; O2SAT 88–99
[2024-01-23] MEDS: Vancomycin IV 1,000 MG/200 ML BAG 200 MG IV ×2 (01:50→13:51)
[2024-01-23] MEDS: Ondansetron 4 MG/2 ML Vial IV (02:12)
[2024-01-23] MEDS: HYDROmorphone 0.5 MG/0.5 ML SYRINGE IV ×6 (02:13→23:03)
[2024-01-23] MEDS: 0.9% Saline Lock 10 ML Syringe IV ×3 (02:16→23:02)
--- NOTE | 2024-01-23 05:00 | EKG12_ITS ---
Test Reason : PRE OP Blood Pressure : */* mmHG Vent. Rate : 77 BPM Atrial Rate : 77 BPM P-R Int : 164 ms QRS Dur : 102 ms QT Int : 404 ms P-R-T Axes : 84 26 -11 degrees QTcB Int : 457 ms Normal sinus rhythm T wave abnormality, consider inferior ischemia Abnormal ECG When compared with ECG of 03-Jan-2022 09:16, No significant change was found Confirmed by MORGAN VALENTE, YUMIKO ([id number]), online editor CLEMENTINA LIRA ([id number]) on 01/24/2024 8:49:45 AM Referred By: AM Confirmed By: YUMIKO MORA MD
[2024-01-23] MEDS: Levothyroxine 100 MCG Tablet PO (05:12)
[2024-01-23 06:58] LABS: Hematocrit 34.1 % (37-47); Hemoglobin 11.3 g/dL (12.0-15.0); Mean Corp Hgb Conc 33.1 g/dL (32-36); Mean Corpuscular Hgb 30.9 pg (27.0-32.0); Mean Corpuscular Volume 93.2 fL (81-99); Mean Platelet Vol. 9.6 fl (6.2-12.0); Platelet Count 325 K/mm3 (150-450); RBC Distribution Width CV 14.2 % (11.6-14.6); RBC Distribution Width SD 48.2 fl (35.1-43.9); Red Blood Count 3.66 M/mm3 (4.2-5.4); White Blood Count 10.9 K/mm3 (4.4-11.0)
[2024-01-23 07:08] LABS: International Normalized Ratio 1.2; Prothrombin Time (Protime)PT. 15.5 SECONDS (11.7-14.9)
[2024-01-23 07:09] LABS: Partial Thromboplast Time 33.6 Seconds (24.1-36.2)
[2024-01-23 07:52] LABS: Anion Gap 10 (5-15); BUN 10 mg/dL (7-18); BUN/Creat Ratio 17.1 RATIO (10-20); Calcium,Total 8.7 mg/dL (8.5-10.1); Chloride 105 mmol/L (98-107); Creatinine, Serum 0.59 mg/dL (0.55-1.02); EST Glomerular Filtration Rate 108 mL/min (>60); Est Glom Filt Rate - Afr Amer 131 mL/min (>60); Estimated Creatinine Clearance 71.09 ml/min; Glucose 97 mg/dL (74-106); Potassium 3.5 mmol/L (3.5-5.1); Sodium Level 136 mmol/L (136-145)
[2024-01-23] MEDS: Ceftriaxone 2 GM in 0.9% Normal Saline (50mL MB+) 50 ML IV (09:54)
--- NOTE | 2024-01-23 10:52 | PCM.CONS.GEN ---
Assessment & Plan Assessment/Plan (1) Infection of prosthetic left knee joint: PLAN: Aspiration done, OR planned. On vanc/ceftriaxone, will continue. Will follow, thank you HPI Consult Data Date of Consult: 01/23/24 HPI Narrative Reason for Consultation: PJI HPI Narrative: ARIEL BADILLO, is a 68 F with prior bilat knee replacements. Had 5 days of diarrhea last week, no blood in stool, no sick contacts. Diarrhea resolved, but over past 2-3 days, progressive L knee pain and swelling. No redness or drainage. No known inciting event. Some chills. Came to ED, aspiration done, vanc/ceftriaxone started, OR planned for today. Full ROS performed and neg except as noted above. [facility] Medical History Wears glasses Thyroid disease Ambulates with cane Rheumatoid arthritis Arthritis Anemia Back pain Migraine headache Injury of head and neck Gastric reflux Non-smoker Asthma Leg cramps History of pain when walking History of edema History of echocardiogram Hypertension Home Medications ?Medication ?Instructions ?Recorded ?Last Taken ?Type albuterol sulfate 90 mcg/actuation 1 inh inhalation Q6H PRN ALLERGIES 01/04/22 Unknown History aerosol inhaler cetirizine 10 mg capsule (Zyrtec) 10 mg PO DAILY Check with primary 01/04/22 01/22/24 History doctor cholecalciferol (vitamin D3) 50 50 mcg PO TU Check with primary 01/04/22 01/16/24 History mcg (2,000 unit) capsule (Vitamin doctor D3) epinephrine 0.3 mg/0.3 mL 0.3 mg IM Q4H PRN Anaphylaxis 01/04/22 Unknown History injection, auto-injector fluticasone 250 mcg-salmeterol 50 1 inh inhalation BID Check with 01/04/22 Unknown History mcg/dose blistr powdr for primary doctor inhalation (Advair Diskus) folic acid 1 mg tablet 1 mg PO DAILY Check with primary 01/04/22 01/22/24 History doctor hydroxychloroquine 200 mg tablet 200 mg PO BID Check with primary 01/04/22 01/22/24 History (Plaquenil) doctor levothyroxine 100 mcg capsule 100 mcg PO QHS Check with primary 01/04/22 01/21/24 History doctor lisinopril 10 mg tablet 10 mg PO QHS Check with primary 01/04/22 01/21/24 History doctor methotrexate sodium 2.5 mg tablet 25 mg PO TU Check with primary 01/04/22 01/16/24 History doctor montelukast 10 mg tablet 10 mg PO DAILY Check with primary 01/04/22 01/22/24 History (Singulair) doctor acetaminophen 500 mg capsule 1,000 mg PO QHS 01/22/24 01/21/24 History diphenhydramine HCl 25 mg capsule 50 mg PO QHS 01/22/24 01/21/24 History (Allergy (diphenhydramine)) Allergy/AdvReac Type Severity Reaction Status Date / Time etodolac Allergy Unknown Hives Verified 01/22/24 13:25 amoxicillin (From Augmentin) Allergy Hives Verified 01/22/24 13:25 clarithromycin (From Biaxin) Allergy Hives Verified 01/22/24 13:25 clavulanic acid (From Allergy Hives Verified 01/22/24 13:25 Augmentin) Environmental Allergies: Allergy Anaphylaxis Verified 01/22/24 09:26 Uncoded erythromycin base Allergy Hives Verified 01/22/24 13:25 NSAIDS (Non-Steroidal Allergy Hives Verified 01/22/24 09:26 Anti-Inflamma oxycodone (From Percodan) Allergy Hives Verified 01/22/24 13:25 Penicillins Allergy Hives Verified 01/22/24 13:25 sesame oil Allergy Anaphylaxis Verified 01/22/24 13:25 tramadol Allergy Hives Verified 01/22/24 13:25 tree nut Allergy Anaphylaxis Verified 01/22/24 13:25 Surgical History (Updated 01/22/24 @ 15:20 by Hilaria Khanna) History of prior ablation treatment Hx of colonoscopy Hx of arthroscopy of left knee Hx of arthroscopy of right knee Hx of arthroscopy of shoulder Hx of appendectomy Hx of hysterectomy Hx of total knee arthroplasty Hx of total knee arthroplasty Social History Smoking Status: Never smoker Physical Exam Const alert, oriented x3 and no apparent distress General Appearance: cooperative HEENT normocephalic and head/scalp atraumatic Eyes PERRL and EOMs intact bilaterally Neck supple and No nodes Resp normal air movement and clear to auscultation bilaterally Cardio regular rate and regular rhythm GI soft to palpation, non-tender and non-distended Extremity Extremity Narrative: L knee swelling, warmth, tenderness General Extremity: edema Skin no rashes or lesions noted Neuro CN's II-XII intact bilaterally Lab / Micro Data Attestation: I reviewed the patient's lab results. 01/23/24 06:38 01/23/24 06:38 Labs: Laboratory Results - last 24 hr 01/22/24 12:13: Fluid Source Cancelled, Fluid Color Cancelled, Fluid Appearance Cancelled, Fluid WBC Cancelled, Fluid RBC Cancelled, Fluid Tot Cell Count Cancelled, Fld Polynuclear WBCs # Cancelled, Fld Polynuclear WBCs % Cancelled, Fluid Mononuclear WBCs Cancelled, Fld Mononuclear WBCs % Cancelled, Fluid Neutrophils Cancelled, Fluid Lymphocytes Cancelled, Fluid Monocytes Cancelled, Fluid Plasma Cells Cancelled, Fluid Macrophages Cancelled, Fld Mesothelial Cells Cancelled, Fluid Other Cells Cancelled, Fluid Crystals NO CRYSTALS SEEN, Fluid Crystal Source SYNOVIAL, Fl Crystal Path Review Will follow, Fl Pathologist Comment Cancelled, Fluid Comment 2 Cancelled, Synovial Source LEFT KNEE, Synovial Color Yellow, Synovial Appearance Cloudy, Synovial Viscosity Sl. Viscous, Synovial WBC 15.6820 H, Synovial RBC 0, Synovial Tot Cell Ct 15.7260 H, Synov Polynuclear WBCs 6.794, Synov Mononuclear WBCs 1.047, Synovial Neutrophils 84 H, Synovial Lymphocytes 5, Synovial Monocytes 11, Synovial Polynuclear % 86.6, Synovial Mononuclear % 13.4, Synovial Path Comment May follow 01/23/24 06:38: WBC 10.9, RBC 3.66 L, Hgb 11.3 L, Hct 34.1 L, MCV 93.2, MCH 30.9, MCHC 33.1, RDW Std Deviation 48.2 H, RDW Coeff of Rusty 14.2, Plt Count 325, MPV 9.6, PT 15.5 H, INR 1.2, APTT 33.6, Sodium 136, Potassium 3.5, Chloride 105, Carbon Dioxide 21.0, Anion Gap 10, BUN 10, Creatinine 0.59, Estim Creat Clear Calc 71.09, Est GFR (MDRD) Af Amer 131, Est GFR (MDRD) Non-Af 108, BUN/Creatinine Ratio 17.1, Glucose 97, Calcium 8.7, TSH 4.240 H Micro: Microbiology 01/22/24 12:13 Fluid - Synovial (joint) Gram Stain - Final
--- NOTE | 2024-01-23 11:24 | PCM.PN.HOSP ---
Reason for Visit Reason for Visit: Diagnoses Pain in left knee (01/22/24) Infection and inflammatory reaction due to internal left knee prosthesis, initial encounter (01/22/24) Subjective Subjective Patient was seen and examined today, her was in the room at the time of my examination. She states he is going to the OR this afternoon for washout of her left knee. I had infectious diseases see the patient to monitor antibiotic treatment. Chronic medical problems include RA and OA, hypothyroidism, and asthma. Objective Data Objective Data Vital Signs: Vital Signs Temp Pulse Resp BP Pulse Ox O2 Del Method 97.5 F L 86 20 H 111/62 99 Room Air 01/23/24 08:30 01/23/24 08:30 01/23/24 08:30 01/23/24 08:30 01/23/24 08:30 01/23/24 08:38 Oxygen Delivery Method Room Air Weight: 94.483 kg Body Mass Index (BMI) 38.0 Intake & Output: Intake and Output for Last 24 Hours 01/21/24 01/22/24 01/23/24 23:59 23:59 23:59 Intake Total 840 / 840 250 / 250 Output Total 200 / 200 300 / 300 Balance 640 / 640 -50 / -50 Lab / Micro Data 01/23/24 06:38 01/23/24 06:38 Labs: Laboratory Results - last 24 hr 01/22/24 12:13: Fluid Source Cancelled, Fluid Color Cancelled, Fluid Appearance Cancelled, Fluid WBC Cancelled, Fluid RBC Cancelled, Fluid Tot Cell Count Cancelled, Fld Polynuclear WBCs # Cancelled, Fld Polynuclear WBCs % Cancelled, Fluid Mononuclear WBCs Cancelled, Fld Mononuclear WBCs % Cancelled, Fluid Neutrophils Cancelled, Fluid Lymphocytes Cancelled, Fluid Monocytes Cancelled, Fluid Plasma Cells Cancelled, Fluid Macrophages Cancelled, Fld Mesothelial Cells Cancelled, Fluid Other Cells Cancelled, Fluid Crystals NO CRYSTALS SEEN, Fluid Crystal Source SYNOVIAL, Fl Crystal Path Review Will follow, Fl Pathologist Comment Cancelled, Fluid Comment 2 Cancelled, Synovial Source LEFT KNEE, Synovial Color Yellow, Synovial Appearance Cloudy, Synovial Viscosity Sl. Viscous, Synovial WBC 15.6820 H, Synovial RBC 0, Synovial Tot Cell Ct 15.7260 H, Synov Polynuclear WBCs 6.794, Synov Mononuclear WBCs 1.047, Synovial Neutrophils 84 H, Synovial Lymphocytes 5, Synovial Monocytes 11, Synovial Polynuclear % 86.6, Synovial Mononuclear % 13.4, Synovial Path Comment May follow 01/23/24 06:38: WBC 10.9, RBC 3.66 L, Hgb 11.3 L, Hct 34.1 L, MCV 93.2, MCH 30.9, MCHC 33.1, RDW Std Deviation 48.2 H, RDW Coeff of Rusty 14.2, Plt Count 325, MPV 9.6, PT 15.5 H, INR 1.2, APTT 33.6, Sodium 136, Potassium 3.5, Chloride 105, Carbon Dioxide 21.0, Anion Gap 10, BUN 10, Creatinine 0.59, Estim Creat Clear Calc 71.09, Est GFR (MDRD) Af Amer 131, Est GFR (MDRD) Non-Af 108, BUN/Creatinine Ratio 17.1, Glucose 97, Calcium 8.7, TSH 4.240 H Micro: Microbiology 01/22/24 12:13 Fluid - Synovial (joint) Gram Stain - Final 01/22/24 12:13 Fluid - Synovial (joint) Body Fluid Culture - Preliminary No growth-Final to follow Physical Exam Const alert, oriented x3, no apparent distress and healthy appearing General Appearance: cooperative, well kempt and well developed Orientation / Consciousness: awake, oriented to person, oriented to place and oriented to time HEENT normocephalic, head/scalp atraumatic and moist oral mucous membranes Eyes PERRL, EOMs intact bilaterally and conjunctivae normal Neck supple, no JVD and thyroid normal General: trachea midline Resp normal respiratory effort, no retractions, no use of accessory muscles and clear to auscultation bilaterally Auscultation: Negative for rales, rhonchi or wheezes Cardio regular rate, regular rhythm, S1 normal heart sound, S2 normal heart sound, no murmurs, no rub and no gallops GI normal to inspection, nondistended, normoactive bowel sounds, soft to palpation, non-tender and non-distended Extremity Extremity Narrative: There is generalized swelling of the left knee noted with warmth Skin no rashes or lesions noted General Skin Exam: no breakdown Neuro oriented x3, CN's II-XII intact bilaterally, moves all extremities, no focal motor deficits and no sensory deficits noted Sensorium / Orientation: awake and alert Speech: speech normal Psych affect normal Assessment & Plan Assessment/Plan (1) Infection of prosthetic left knee joint: PLAN: Plan 1. Infection of the left prosthetic knee-again patient is being seen by orthopedic surgery and will undergo a washout today of the left knee, further cultures will be obtained at that time, ID is seeing the patient at this time and recommends continuing ceftriaxone and vancomycin. #2 RA-patient's methotrexate Plaquenil will be held at this time #3 asthma-this appears to be stable at this time, complicates care, management, recovery, and prognosis #4 hypothyroidism-patient is currently on Synthroid Total clinical time spent by myself addressing the patient's medical issues, reviewing all of her data, and collaborating with patient's care team: 35 minutes. Charges/Coding Visit Charges Inpatient E&M: 87289 Subs Hosp L2
--- NOTE | 2024-01-23 14:51 | PRE.ANES_ITS ---
ASA Classification* ASA Classification ASA Classification: 3 Assessment & Plan Anesthesia* Anesthesia Assessment Anesthesia Assessment: Discussed sedation and/or anesthesia options, risks, benefits, and alternatives with patient/parents/legal guardian/POA. Questions invited. The patient/parents/legal guardian/POA seems to understand and agrees to proceed with anesthesia plan. Reviewed the physical assessment, medical history, allergy history and patient home medications list prior to surgery/procedure/anesthetic and documented any changes. Performed airway and anesthesia risk assessments. Anesthesia Type Anesthesia Type: General History Source History Obtained from:: Patient and Chart Anesthesia Focused Assessment* Temperature: 97.5 F Pulse Rate: 86 Blood Pressure: 111/62 Respiratory Rate: 20 Pulse Ox: 99 Oxygen Delivery Method: Room Air Airway Assessment Mouth opens: >3 cm Mallampati Score: II Teeth Condition: Partial (Patient has a top left bridge.) Neck Range of motion (ROM): Full ROM Focused Labs Anesthesia Preop lab: CBC WBC 10.9 K/mm3 (4.4-11.0) 01/23/24 06:38 RBC 3.66 M/mm3 (4.2-5.4) L 01/23/24 06:38 Hgb 11.3 g/dL (12.0-15.0) L 01/23/24 06:38 Hct 34.1 % (37-47) L 01/23/24 06:38 Plt Count 325 K/mm3 (150-450) 01/23/24 06:38 CHEMISTRY Potassium 3.5 mmol/L (3.5-5.1) 01/23/24 06:38 Sodium 136 mmol/L (136-145) 01/23/24 06:38 Magnesium 2.2 mg/dL (1.6-2.6) 01/03/22 09:43 BUN 10 mg/dL (7-18) 01/23/24 06:38 Creatinine 0.59 mg/dL (0.55-1.02) 01/23/24 06:38 Glucose 97 mg/dL (74-106) 01/23/24 06:38 POC Glucose 92 mg/dL (74-106) 01/19/22 11:21 TSH 4.240 uIU/mL (0.358-3.740) H 01/23/24 06:38 COAG PT 15.5 SECONDS (11.7-14.9) H 01/23/24 06:38 Pre-Assessment Diagnosis/Proposed Procedure Planned Operative Procedure(s): Left knee irrigation, debridement with polyethylene exchange. 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 When Was Last Pacemaker Check QUESTION #4 FULL TEXT: You/Your Family Experience fever (hyperthermia) with Anesthesia Last Oral Intake Last Oral intake: Last Oral Intake NPO since Meds taken in AM with sips of water? Meds patient instructed to take am of surgery Any additional information?: Yes NPO since: 00:00 Meds taken in AM with sips of water?: Yes PONV PONV - bulk loader: PONV - bulk loader Female HX of Motion Sickness HX of N/V After Surgery Non-Smoker Duration of Surgery greater than 60 minutes Number of Risk Factors PONV Score Height & Weight Height & Weight: Anesthesia: Height & Weight Height 5 ft 2 in 01/22/24 15:16 Weight: 94.483 kg 01/22/24 15:16 Body Mass Index (BMI) 38.0 01/22/24 15:16 Respiratory Assessment Respiratory Assessment - bulk loader: Respiratory Tract Infection Hx - bulk loader Hx Respiratory Tract Infection No 01/22/24 20:39 STOP Sleep Apnea STOP Sleep Apnea - bulk loader: STOP Sleep Apnea - bulk loader Hx Hypertension Yes 01/23/24 09:54 Hx Sleep Apnea No 01/22/24 15:20 CPAP BIPAP Do you snore loudly (louder No 01/22/24 15:20 than talking or can be heard Do you often feel tired/ No 01/22/24 15:20 fatigued/ sleepy during daytime? Has anyone observed you stop No 01/22/24 15:20 breathing during sleep? STOP Results Negative 01/22/24 15:20 QUESTION #5 FULL TEXT : Do you snore loudly (louder than talking or can be heard through closed doors)? 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 Specify any problems Hx of Preganancy in last 3 No 01/22/24 15:20 Months Nurse Filling Out Transfusion [email or web address] 01/22/24 15:20 & Questions: Date: 01/22/24 01/22/24 15:20 Time: 15:22 01/22/24 15:20 Patient unable to answer at this time (ie. confused, unrespo /Reproduction History /Reproductive History - bulk loader: /Reproductive Hx- bulk loader Hx Now Gestational Age (in weeks): EDC: Hx Hx Para Hx Section SAB No 01/22/24 20:39 Active Medications Active Medications: Current Medications Generic Name Dose Route Start Last Admin Trade Name Freq PRN Reason Stop Dose Admin Acetaminophen 650 mg 01/22/24 18:00 01/23/24 11:08 Acetaminophen 325 Mg Tablet PO Not Given Q6 ADAIR Albuterol Sulfate 2.5 mg 01/22/24 15:17 Albuterol 2.5 Mg/3 Ml Vial.Neb. INHALATION Q6H PRN ALLERGIES/ SOB Cholecalciferol 50 mcg 01/23/24 10:00 01/23/24 07:28 Cholecalciferol (Vit D3) 25 Mcg Tablet (1,000 Units) PO Not Given DAILY ADAIR Diphenhydramine HCl 50 mg 01/22/24 22:00 01/22/24 21:28 Diphenhydramine 25 Mg Capsule PO 50 mg QHS ADAIR Administration Enoxaparin Sodium 40 mg 01/23/24 10:00 01/23/24 07:28 Enoxaparin 40 Mg/0.4 Ml Syringe SC Not Given DAILY ADAIR Folic Acid 1 mg 01/23/24 08:00 01/23/24 07:28 Folic Acid 1 Mg Tablet PO Not Given DAILYCM ADAIR Hydromorphone HCl 0.5 mg 01/23/24 02:04 01/23/24 11:57 Hydromorphone 0.5 Mg/0.5 Ml Syringe IV 0.5 mg Q3H PRN PRN Administration Pain Score 6-10 Hydroxychloroquine Sulfate 200 mg 01/22/24 22:00 01/23/24 07:28 Hydroxychloroquine 200 Mg Tablet PO Not Given BID ADAIR Sodium Chloride 500 mls @ 15 mls/hr 01/22/24 14:58 IV .[id number] PRN Saline Flush Sodium Chloride 500 mls @ 15 mls/hr 01/22/24 14:58 IV .[id number] PRN Additional IVPB Infusion Vancomycin IV-PHARMACY TO DOSE 500 mls @ 250 mls/hr 01/22/24 15:07 1 each/ Sodium Chloride IV PRN PRN Rx to Dose Protocol Vancomycin HCl 1,000 mg in 200 mls @ 200 mls/hr 01/23/24 02:00 01/23/24 13:51 Vancomycin IV 200 mls/hr Q12H ADAIR Administration Ceftriaxone Sodium 2 gm/ 50 mls @ 100 mls/hr 01/24/24 10:00 Sodium Chloride IV Q24 ADAIR Levothyroxine Sodium 100 mcg 01/23/24 06:00 01/23/24 05:12 Levothyroxine 100 Mcg Tablet PO 100 mcg 0600 ADAIR Administration Loratadine 10 mg 01/23/24 10:00 01/23/24 07:28 Loratadine 10 Mg Tablet PO Not Given DAILY ADAIR Melatonin 3 mg 01/22/24 15:07 Melatonin 3 Mg Tablet PO QHS PRN PRN INSOMNIA Methotrexate 25 mg 01/23/24 10:00 01/23/24 07:28 Methotrexate 2.5 Mg Tablet PO Not Given TU ADAIR Montelukast Sodium 10 mg 01/23/24 10:00 01/23/24 07:28 Montelukast 10 Mg Tablet PO Not Given DAILY ADAIR Nutritional Formula (Lactose Free) 120 ml 01/23/24 08:00 01/23/24 11:07 Ensure Plus High Protein 120 Ml Liquid PO Not Given TIDCM ADAIR Ondansetron HCl 4 mg 01/22/24 15:07 01/23/24 02:12 Ondansetron 4 Mg/2 Ml Vial IV 4 mg Q8H PRN PRN Administration NAUSEA/VOMITING Sodium Chloride 10 - 40 ml 01/22/24 14:58 01/23/24 02:16 0.9% Saline Lock 10 Ml Syringe IV 10 ml UD PRN Administration SALINE FLUSH Vancomycin Protocol 1 lab 01/23/24 23:30 Vancomycin Trough/Random Due MC 01/24/24 03:30 DAILY ADAIR PFSH Medical History Wears glasses Thyroid disease Ambulates with cane Rheumatoid arthritis Arthritis Anemia Back pain Migraine headache Injury of head and neck Gastric reflux Non-smoker Asthma Leg cramps History of pain when walking History of edema History of echocardiogram Hypertension Home Medications ?Medication ?Instructions ?Recorded ?Last Taken ?Type albuterol sulfate 90 mcg/actuation 1 inh inhalation Q6H PRN ALLERGIES 01/04/22 Unknown History aerosol inhaler cetirizine 10 mg capsule (Zyrtec) 10 mg PO DAILY Check with primary 01/04/22 01/22/24 History doctor cholecalciferol (vitamin D3) 50 50 mcg PO TU Check with primary 01/04/22 01/16/24 History mcg (2,000 unit) capsule (Vitamin doctor D3) epinephrine 0.3 mg/0.3 mL 0.3 mg IM Q4H PRN Anaphylaxis 01/04/22 Unknown History injection, auto-injector fluticasone 250 mcg-salmeterol 50 1 inh inhalation BID Check with 01/04/22 Unknown History mcg/dose blistr powdr for primary doctor inhalation (Advair Diskus) folic acid 1 mg tablet 1 mg PO DAILY Check with primary 01/04/22 01/22/24 History doctor hydroxychloroquine 200 mg tablet 200 mg PO BID Check with primary 01/04/22 01/22/24 History (Plaquenil) doctor levothyroxine 100 mcg capsule 100 mcg PO QHS Check with primary 01/04/22 01/23/24 History doctor lisinopril 10 mg tablet 10 mg PO QHS Check with primary 01/04/22 01/21/24 History doctor methotrexate sodium 2.5 mg tablet 25 mg PO TU Check with primary 01/04/22 01/16/24 History doctor montelukast 10 mg tablet 10 mg PO DAILY Check with primary 01/04/22 01/22/24 History (Singulair) doctor acetaminophen 500 mg capsule 1,000 mg PO QHS 01/22/24 01/21/24 History diphenhydramine HCl 25 mg capsule 50 mg PO QHS 01/22/24 01/21/24 History (Allergy (diphenhydramine)) Allergy/AdvReac Type Severity Reaction Status Date / Time etodolac Allergy Unknown Hives Verified 01/22/24 13:25 amoxicillin (From Augmentin) Allergy Hives Verified 01/22/24 13:25 clarithromycin (From Biaxin) Allergy Hives Verified 01/22/24 13:25 clavulanic acid (From Allergy Hives Verified 01/22/24 13:25 Augmentin) Environmental Allergies: Allergy Anaphylaxis Verified 01/22/24 09:26 Uncoded erythromycin base Allergy Hives Verified 01/22/24 13:25 NSAIDS (Non-Steroidal Allergy Hives Verified 01/22/24 09:26 Anti-Inflamma oxycodone (From Percodan) Allergy Hives Verified 01/22/24 13:25 Penicillins Allergy Hives Verified 01/22/24 13:25 sesame oil Allergy Anaphylaxis Verified 01/22/24 13:25 tramadol Allergy Hives Verified 01/22/24 13:25 tree nut Allergy Anaphylaxis Verified 01/22/24 13:25 morphine AdvReac Other Verified 01/23/24 15:02 Surgical History (Updated 01/22/24 @ 15:20 by Hilaria Khanna) History of prior ablation treatment Hx of colonoscopy Hx of arthroscopy of left knee Hx of arthroscopy of right knee Hx of arthroscopy of shoulder Hx of appendectomy Hx of hysterectomy Hx of total knee arthroplasty Hx of total knee arthroplasty Social History Smoking Status: Never smoker Review of Systems (Anesthesia) ROS Narrative System reviewed and no additional complaints, except as documented.
[2024-01-23] MEDS: Lactated Ringers 1,000 ML 15 ML IV (14:54)
--- NOTE | 2024-01-23 15:00 | SOF_PTH ---
PATIENT: ARIEL BADILLO LOC: MS3 U#:[id number] AGE/SX: 68/F ROOM: [facility] – [place], [place] RE01/22/[address]: Dr. Srinivas Lugo DO : 1955 BED: 1 DIS: 01/25/2024 SPEC #: [id number] RECD: 01/23/24 17:13 STATUS: JOSE CLARK #: [id number] HAYES: 01/23/24 15:[address]: Kristian Vela DEPT: SURGICAL PATHOLOGY RECD BY: Beulah Elizabeth ENTERED: 01/25/24 09:42 SP TYPE: SOFT TISS OTHR DR: DO Dr. Srinivas Jiménez DO Dr. Robert Leininger, MD Dr. Steven Widmer, MD Tissues: A - Soft tissues, NOS B - Soft tissues, NOS C - Soft tissues, NOS Procedures: Surgery Specimen Level III Comments: @ Ordering doctor for SUIII edited from to @ by JADE at 01/25/24 1017 @ Submitting doctor edited from to @ by JADE at 01/25/24 1017 HEADER OPERATION: Total knee exchange PRE-OP DIAGNOSIS: Prosthetic knee infection TISSUE SUBMITTED: A- Supra patellar pouch, B- Tibial membrane, C- Fibular membrane MICROSCOPIC DIAGNOSIS A. Supra patellar pouch, biopsy: Acute and chronic inflammation with degenerative changes. B. Tibial membrane, excision: Extensive degenerative change with hyalinization. C. Fibular membrane, excision: Chronic inflammation with fibrosis and degenerative change. AM. 01/26/2024 MICROSCOPIC DESCRIPTION Slides are reviewed. GROSS DESCRIPTION A. Received in fixative is one container labeled with the patient's name and designated Supra patellar pouch. The specimen consists of a piece of acosta-yellow soft tissue with focal area of congestion and hemorrhage measuring 3.5 x 2.0 x 1.5cm. No mass lesion is identified. Outcomes Manager sections are submitted in one cassette. B. Received in fixative is one container labeled with the patient's name and designated Tibial membrane. The specimen consists of a piece of acosta-white soft tissue measuring 1.5 x 0.5 x 0.1cm. The entire specimen is submitted in one cassette. C. Received in fixative is one container labeled with the patient's name and designated Fibular membrane. The specimen consists of an irregular piece of acosta-yellow congested adipose tissue measuring 3.0 x 0.7 x 0.5cm. The entire specimen is submitted in one cassette. SJRadhamr 01/25/2024 TC:3 CPT:91268s1
--- NOTE | 2024-01-23 15:24 | CONS.ORTHO ---
HPI Consult Data Date of Consult: 01/23/24 HPI Narrative Reason for Consultation: Left knee pain HPI Narrative: ARIEL BADILLO, is a 68 F with a history of rheumatoid arthritis and bilateral knee replacements who presents today with left knee pain. Patient had a previous left total knee replacement in 2006 by my previous partner. She also has a history of right knee revision by myself in 2021. Patient notes that she also has right hand pain and swelling consistent with her rheumatoid symptoms. Patient reports that on Monday around 230 she started have pain in her knee. After pain all day Monday she elected to drive to the emergency department with her . Since her knee replacement she has moved to [place] where she has care under [facility] for her rheumatoid arthritis. She takes methotrexate and Plaquenil. Patient did have GI upset for about 5 days last week and also had dental work about a month ago and states she did take her prophylactic antibiotics at that time. Patient reports severe 20 20 out of 10 pain. She has had swelling. She denies any fevers at home. She denies any redness. She has pain with motion. She was hemodynamically stable in the emergency department yesterday and admitted to medicine. Infectious disease did see her this morning and placed her on Vanco and ceftriaxone. She did have an aspiration in the emergency department yesterday and meets GERARDO criteria for periprosthetic joint infection. [facility] Medical History Wears glasses Thyroid disease Ambulates with cane Rheumatoid arthritis Arthritis Anemia Back pain Migraine headache Injury of head and neck Gastric reflux Non-smoker Asthma Leg cramps History of pain when walking History of edema History of echocardiogram Hypertension Home Medications ?Medication ?Instructions ?Recorded ?Last Taken ?Type albuterol sulfate 90 mcg/actuation 1 inh inhalation Q6H PRN ALLERGIES 01/04/22 Unknown History aerosol inhaler cetirizine 10 mg capsule (Zyrtec) 10 mg PO DAILY Check with primary 01/04/22 01/22/24 History doctor cholecalciferol (vitamin D3) 50 50 mcg PO TU Check with primary 01/04/22 01/16/24 History mcg (2,000 unit) capsule (Vitamin doctor D3) epinephrine 0.3 mg/0.3 mL 0.3 mg IM Q4H PRN Anaphylaxis 01/04/22 Unknown History injection, auto-injector fluticasone 250 mcg-salmeterol 50 1 inh inhalation BID Check with 01/04/22 Unknown History mcg/dose blistr powdr for primary doctor inhalation (Advair Diskus) folic acid 1 mg tablet 1 mg PO DAILY Check with primary 01/04/22 01/22/24 History doctor hydroxychloroquine 200 mg tablet 200 mg PO BID Check with primary 01/04/22 01/22/24 History (Plaquenil) doctor levothyroxine 100 mcg capsule 100 mcg PO QHS Check with primary 01/04/22 01/23/24 History doctor lisinopril 10 mg tablet 10 mg PO QHS Check with primary 01/04/22 01/21/24 History doctor methotrexate sodium 2.5 mg tablet 25 mg PO TU Check with primary 01/04/22 01/16/24 History doctor montelukast 10 mg tablet 10 mg PO DAILY Check with primary 01/04/22 01/22/24 History (Singulair) doctor acetaminophen 500 mg capsule 1,000 mg PO QHS 01/22/24 01/21/24 History diphenhydramine HCl 25 mg capsule 50 mg PO QHS 01/22/24 01/21/24 History (Allergy (diphenhydramine)) Allergy/AdvReac Type Severity Reaction Status Date / Time etodolac Allergy Unknown Hives Verified 01/22/24 13:25 amoxicillin (From Augmentin) Allergy Hives Verified 01/22/24 13:25 clarithromycin (From Biaxin) Allergy Hives Verified 01/22/24 13:25 clavulanic acid (From Allergy Hives Verified 01/22/24 13:25 Augmentin) Environmental Allergies: Allergy Anaphylaxis Verified 01/22/24 09:26 Uncoded erythromycin base Allergy Hives Verified 01/22/24 13:25 NSAIDS (Non-Steroidal Allergy Hives Verified 01/22/24 09:26 Anti-Inflamma oxycodone (From Percodan) Allergy Hives Verified 01/22/24 13:25 Penicillins Allergy Hives Verified 01/22/24 13:25 sesame oil Allergy Anaphylaxis Verified 01/22/24 13:25 tramadol Allergy Hives Verified 01/22/24 13:25 tree nut Allergy Anaphylaxis Verified 01/22/24 13:25 morphine AdvReac Other Verified 01/23/24 15:02 Surgical History History of prior ablation treatment Hx of colonoscopy Hx of arthroscopy of left knee Hx of arthroscopy of right knee Hx of arthroscopy of shoulder Hx of appendectomy Hx of hysterectomy Hx of total knee arthroplasty Hx of total knee arthroplasty Social History Smoking Status: Never smoker ROS ROS Narrative 14 point review systems outside was mentioned in the HPI is negative Vital Signs Vital Signs Vital Signs: 01/22/24 15:57 01/22/24 17:12 01/22/24 20:18 Temperature Temperature Source Pulse Rate 90 Pulse Strength Respiratory Rate Respiratory Effort Normal Normal Respiratory Depth Normal Normal Respiratory Pattern Normal Normal Blood Pressure Blood Pressure Mean Blood Pressure Source Blood Pressure Position Blood Pressure Location Pulse Ox Oxygen Delivery Method Room Air Room Air Room Air 01/22/24 20:18 01/22/24 20:18 01/23/24 02:18 Temperature 98.7 F 98.2 F Temperature Source Oral Oral Pulse Rate 77 80 Pulse Strength Normal (2+) Respiratory Rate 16 16 Respiratory Effort Respiratory Depth Respiratory Pattern Blood Pressure 104/61 131/82 H Blood Pressure Mean 75 98 Blood Pressure Source Monitor Monitor Blood Pressure Position Semi-Fowlers Semi-Fowlers Blood Pressure Location Right Arm Right Arm Pulse Ox 96 99 Oxygen Delivery Method Room Air Room Air 01/23/24 02:18 01/23/24 04:43 01/23/24 07:56 Temperature 98.6 F Temperature Source Oral Pulse Rate 79 Pulse Strength Respiratory Rate 16 Respiratory Effort Normal Respiratory Depth Normal Respiratory Pattern Normal Blood Pressure 102/63 Blood Pressure Mean 76 Blood Pressure Source Monitor Blood Pressure Position Semi-Fowlers Blood Pressure Location Right Arm Pulse Ox 94 96 Oxygen Delivery Method Room Air Room Air Room Air 01/23/24 08:30 01/23/24 08:34 01/23/24 08:38 Temperature 97.5 F L Temperature Source Temporal Pulse Rate 86 Pulse Strength Normal (2+) Respiratory Rate 20 H Respiratory Effort Normal Respiratory Depth Normal Respiratory Pattern Normal Blood Pressure 111/62 Blood Pressure Mean 78 Blood Pressure Source Monitor Blood Pressure Position Semi-Fowlers Blood Pressure Location Right Arm Pulse Ox 99 Oxygen Delivery Method Room Air Room Air 01/23/24 15:04 Temperature 97.5 F L Temperature Source Pulse Rate 86 Pulse Strength Respiratory Rate 20 H Respiratory Effort Respiratory Depth Respiratory Pattern Blood Pressure 111/62 Blood Pressure Mean Blood Pressure Source Blood Pressure Position Blood Pressure Location Pulse Ox 99 Oxygen Delivery Method Room Air Weight Weight: 208 lb 4.8 oz Body Mass Index (BMI) 38.0 Physical Exam Const alert and oriented x3 General Appearance: cooperative HEENT normocephalic Eyes PERRL Neck no JVD Resp normal respiratory effort Cardio Cardio Narrative: Regular pulse rate. GI non-distended Extremity Extremity Narrative: Left lower extremity: Large effusion. Pain with passive range of motion of the knee. Positive dorsiflexion neutral plantarflexion. Sensations intact light touch saphenous, sural, superficial peroneal, deep peroneal tibial nerve distributions. Regular dorsalis pedis pulses. Calves are soft and supple Skin Skin Narrative: Previous incisions are clean dry and intact Neuro CN's II-XII intact bilaterally Psych mental status grossly normal and affect normal Medical Records Data Attestation: I reviewed the patient's medical records Lab / Micro Data Lab results narrative: GERARDO criteria of elevated synovial white blood cell counts, elevated synovial PMN percentage and elevated CRP placed the patient at 6 which is consistent with periprosthetic joint infection. 01/23/24 06:38 01/23/24 06:38 Labs: Laboratory Results - last 24 hr 01/23/24 06:38: WBC 10.9, RBC 3.66 L, Hgb 11.3 L, Hct 34.1 L, MCV 93.2, MCH 30.9, MCHC 33.1, RDW Std Deviation 48.2 H, RDW Coeff of Rusty 14.2, Plt Count 325, MPV 9.6, PT 15.5 H, INR 1.2, APTT 33.6, Sodium 136, Potassium 3.5, Chloride 105, Carbon Dioxide 21.0, Anion Gap 10, BUN 10, Creatinine 0.59, Estim Creat Clear Calc 71.09, Est GFR (MDRD) Af Amer 131, Est GFR (MDRD) Non-Af 108, BUN/Creatinine Ratio 17.1, Glucose 97, Calcium 8.7, TSH 4.240 H Micro: Microbiology 01/22/24 12:13 Fluid - Synovial (joint) Gram Stain - Final 01/22/24 12:13 Fluid - Synovial (joint) Body Fluid Culture - Preliminary No growth-Final to follow Imaging Previous x-rays were reviewed she has a stable left knee with previous total knee replacement which is well aligned and well-fixed with press-fit implants. Assessment & Plan Assessment/Plan (1) Infection of prosthetic left knee joint: PLAN: Natural history of the disease process and treatment options were discussed the patient. Ultimately, we discussed nonoperative versus operative treatment. Operative treatments include two-stage revision versus irrigation debridement and implant retention. Ultimately, I did recommend irrigation debridement implant retention considering the patient's short duration of symptoms. Additionally, patient has a history of rheumatoid arthritis and increased pain and swelling in her right hand which may be a sign of rheumatoid flare. Patient does meet GERARDO criteria with a score of 6 preoperatively. We discussed that failure to treat an infection could have significant untoward complications. I recommended we proceed with an irrigation debridement polyethylene exchange today of the left knee. Patient's family was at bedside and agreed as well. Patient was in agreement after thorough discussion of the risk and benefits which include but were not limited to blood loss, DVTs, PEs, nervous damage confession, and risk of anesthesia include loss of life. Infections do include continuation of current infection versus superinfections. All parties are in agreement and wished to move forward. Patient is currently NPO. She is on antibiotics on the floor. (2) Hx of rheumatoid arthritis: PLAN: Patient does take methotrexate and Plaquenil for her rheumatoid. She does have an increase in right hand pain. Possible this is a rheumatoid flare masquerading as an infection however missed infection diagnosis could have significant untoward complications including the need for explantation. Based on this I did recommend we proceed with treatment based on the MSIS criteria.
--- NOTE | 2024-01-23 16:25 | PCM.OPRPT ---
Problems Associated Problem List Diagnoses (1) Infection of prosthetic left knee joint: Operative Report (Standard) Operative Information Surgery/Procedure Performed: Irrigation debridement, complete synovectomy with polyethylene revision exchange left total knee Surgeon: Kristian Vela Date of Procedure: 01/23/24 Procedure Start Time: 15:48 Procedure Stop Time: 17:31 Pre-Operative Diagnosis: Left knee periprosthetic joint infection Post-Operative Diagnosis: Left knee periprosthetic joint infection Select all DRAINS/GRAFTS/IMPLANTS that apply: Prosthetic device Prosthetic device details: [employer] natural knee congruent 1 to 9 mm polyethylene Type of Anesthesia: General Special Medications: Patient was receiving ceftriaxone and vancomycin on the floor. Estimated Blood Loss: 200 Fluids Replaced: crystalloid Specimen collected: Yes Description of specimen(s) removed: 3 separate specimens were sent to microbiology Description of surgery: 68 yo f history of L TKA in 2006 presents with 48 hours of increased pain and swelling with findings consistent with acute periprosthetic joint infection. Reviewed options were discussed the patient. Based on acuity of the symptoms and organism irrigation debridement with polyethylene exchange is recommended. Risks and benefits of the procedure were discussed with the patient including but not limited to blood loss, DVTs, PEs, neurovascular damage, infection, general risk of anesthesia including loss of life. Demonstrated understanding and was able to sign informed consent. On the date of procedure patient's L lower extremity was marked in the preoperative area. The patient was then taken back to the operating room where the patient was placed on the table in the supine position. All bony prominences were identified a well-padded. Anesthesia assumed control of the C-spine and airway and remained controlled throughout the remainder of the procedure. A tourniquet was placed on the operative thigh and the leg was prepped in a sterile fashion. The surgeon then scrubbed at this time .Upon reentering the room left lower extremity was draped in a standard orthopedic fashion. A timeout was then called and everyone agreed upon the side, the site, the procedure to be performed, patient's identity and antibiotics given. A midline skin incision was made and sharp dissection was taken down through skin subcutaneous tissue and fat. Appropriate flaps were elevated medially and laterally. His arthrotomy was identified and the standard medial parapatellar incision was made and the patella was subluxed laterally. The standard deep MCL release was done. At this point an aggressive synovectomy commenced. Our attention was first turned towards the subpatellar pouch and all suspicious synovium and tissues were debrided. We then directed our attention towards medial lateral gutters were these tissues were aggressively debrided. Knee was then flexed up the polyethylene was removed. Once polyethylene was removed we did the remainder of the synovium in the medial and lateral gutters and along the lateral structures and MCL. We then debrided the posterior knee. Knee was flexed up and culture was taken from the femoral notch. And also there was a membrane beneath the tibial baseplate that was removed and sent for culture. He had completed our synovectomy and were happy with the joint. 6 L of normal saline were then irrigated throughout the wound with low-pressure lavage and the wound was once again explored. All remaining tissue that was suspicious was seen in the wound was once again irrigated with normal saline. 9 mm polyethylene was then opened and put back into place after appropriate trialing. Tourniquet was let down and hemostasis was obtained as well as possible. 1 g of vancomycin powder were placed in the wound/joint. Once the final components were placed the wound was copiously irrigated with normal saline solution. The wound was closed in a layer niño fashion using #1 vicryl interrupted sutures for the arthrotomy, 2-0 interrupted Vicryl for the subcuticular layer and ivon for final skin closure. A sterile compressive dressing was then placed. The patient was then awakened from anesthesia, transferred to the [facility] and transferred to the PACU for recovery. Post op plan Antibiotic management per infectious disease. Patient will likely need PICC line and 6 weeks IV antibiotics will follow cultures. DVT prophylaxis recommend 81 mg aspirin p.o. twice daily for a minimum of 4 weeks postoperatively. Range of motion and weightbearing as tolerated. My physician program support assistant was a vital part of this case, they was important because there was not another skilled set of hands available to their training and aptitude needed for safe and appropriate completion of this case. They were important in appropriate retraction during the case, and protection of soft tissues during bony cuts. In particular the experience and skill of this program support assistant made for safe retraction and exposure during implantation of medical implants without damage or fracture to vital soft tissues or structures. His intimate knowledge of the case and my steps aided in safe and expedient completion of the procedure as well as appropriate position of the leg during the case. He was also vital in assisting with closure and placement of the dressing under my direct supervision. Surgical Findings: Cloudy synovial fluid was encountered upon entering the wound Machine Group Leader camp tender: Yes Retail Sales Associate Bilingual: Pacheco Damian Tasks completed by microbiology lab assistant: Other (See operative report) Additional program support assistant?: No Complications Complications: No Admit VTE Documentation VTE Present on Admission: No VTE Mechan Device Prophylaxis: SCD's and Thigh High COREY Hose VTE Pharm Prophylaxis ordered?: Yes
--- NOTE | 2024-01-23 17:44 | PCM.POST.ANE ---
Anesthesia: Postop Eval I Current Vital Signs Temperature: 99.3 F Pulse Rate: 100 Blood Pressure: 139/76 Respiratory Rate: 16 Pulse Ox: 94 Oxygen Delivery Method: Nasal Cannula Oxygen Flow Rate (L/min): 2 Assessment Airway patent: Yes Spontaneous unlabored respirations: Yes Mental status: Awake and Calm nausea: No Vomiting: No Anesthesia Complication: No Fluid Hydration Crystalloid volume administer (ml): 1,200 Total IV fluid infused: 1,200 Progress Note Anesthesia document: Postop Eval 1 completed: Yes
[2024-01-23] MEDS: Acetaminophen 325 MG Tablet 650 MG PO (22:31)
[2024-01-23] MEDS: DiphenhydrAMINE 25 MG Capsule 50 MG PO (22:51)
[2024-01-23] MEDS: Hydroxychloroquine 200 MG Tablet PO (22:51)
[2024-01-24 01:55] LABS: Vancomycin, Trough Level 10.8 ug/mL (5.0-15.0)
[2024-01-24 02:12] VITALS: BP 120/86; PULSE 93; RESP 18; TEMP 36.5; O2SAT 96
[2024-01-24] MEDS: HYDROmorphone 0.5 MG/0.5 ML SYRINGE IV ×2 (02:24→10:37)
[2024-01-24] MEDS: Vancomycin HCl 1,500 MG in 0.9% Normal Saline (500mL Bag) 500 ML 250 MG IV ×2 (02:28→15:38)
--- NOTE | 2024-01-24 03:08 | PCM.RX.CS ---
Consult Antibiotic Management Pharmacy has been consulted to manage selected antibiotic: Vancomycin Type of Intervention Type of Consult: Follow-up Labs Labs: Sodium 136 mmol/L (136-145) 01/23/24 06:38 Potassium 3.5 mmol/L (3.5-5.1) 01/23/24 06:38 Chloride 105 mmol/L (98-107) 01/23/24 06:38 Carbon Dioxide 21.0 mmol/L (21.0-32.0) 01/23/24 06:38 Anion Gap 10 (5-15) 01/23/24 06:38 BUN 10 mg/dL (7-18) 01/23/24 06:38 Creatinine 0.59 mg/dL (0.55-1.02) 01/23/24 06:38 Est GFR (MDRD) Af Amer 131 mL/min (>60) 01/23/24 06:38 Est GFR (MDRD) Non-Af 108 mL/min (>60) 01/23/24 06:38 BUN/Creatinine Ratio 17.1 RATIO (10-20) 01/23/24 06:38 Glucose 97 mg/dL (74-106) 01/23/24 06:38 Vancomycin Trough 10.8 ug/mL (5.0-15.0) 01/24/24 01:25 Microbiology Microbiology: Microbiology 01/22/24 12:13 Fluid - Synovial (joint) Gram Stain - Final 01/22/24 12:13 Fluid - Synovial (joint) Body Fluid Culture - Preliminary No growth-Final to follow Dosing Weight Weight used for dosin.5 kg Estimated Creatinine Clearance Estimated Creatinine Clearance: 71 Goal Trough Goal Trough: 15-20 mcg/mL Pharmacy Plan for Drug Dosing Pharmacy Plan for Drug Dosing: Vancomycin trough level of 10.8, drawn 11.5hrs post-dose, was below the target range of 15-20. Will increase dose to 1500mg q12h and will draw a trough level prior to fourth dose of the new regimen. Pharmacy Service will continue to monitor and adjust dosing as required. Follow-Up Labs Follow-Up Labs: Trough: Vancomycin Date/Time Labs Ordered Labs to be done on [date and time ordered]: 01/25/24 @1400
[2024-01-24] MEDS: Acetaminophen 325 MG Tablet 650 MG PO ×2 (06:05→12:48)
[2024-01-24 06:09] VITALS: BP 122/84; PULSE 89; RESP 16; TEMP 37.3; O2SAT 98
[2024-01-24 07:57] VITALS: O2SAT 95
[2024-01-24 08:03] VITALS: PULSE 90; O2SAT 95
[2024-01-24] MEDS: Folic Acid 1 MG Tablet PO (08:20)
[2024-01-24] MEDS: Hydroxychloroquine 200 MG Tablet PO ×2 (08:21→23:21)
[2024-01-24] MEDS: Montelukast 10 MG Tablet PO (08:22)
[2024-01-24] MEDS: Cholecalciferol (VIT D3) 25 MCG TABLET (1,000 UNITS) 50 MCG PO (08:22)
--- NOTE | 2024-01-24 11:14 | POSTOPAN2_ITS ---
Anesthesia Postop Eval I Sum Postop Eval Completion status Anesthesia document: Postop Eval 1 completed: Yes Anesthesia Postop Eval I Summary Anesthesia Postop Eval I Summary: Anesthesia Postop Eval I: Assessment Summary Airway patent Yes 01/23/24 17:45 [email or web address] [email or web address] Spontaneous unlabored Yes 01/23/24 17:45 [email or web address] [email or web address] respirations Mental status Awake,Calm 01/23/24 17:45 [email or web address] [email or web address] [email or web address] nausea No 01/23/24 17:45 [email or web address] [email or web address] Vomiting No 01/23/24 17:45 [email or web address] [email or web address] Anesthesia Postop Eval I: Fluid Summary Crystalloid volume administer 1,200 01/23/24 17:45 [email or web address] [email or web address] (ml) Colloids volume administered ( ml) Blood Product volume administered (ml) Total IV fluid infused 1,200 01/23/24 17:45 BUTTON [email or web address] Anesthesia Postop Eval I: Summary Notes Anesthesia Complication No 01/23/24 17:45 BUTTON [email or web address] [email or web address] Anesthesia Complication Comment: Post-operative progress note Anesthesia: Postop Eval II Evaluation Mental status: Awake and Calm Pain Level: 1 nausea: No Vomiting: No Complications Anesthesia Complication: No
--- NOTE | 2024-01-24 11:14 | PCM.POSTANE2 ---
Anesthesia Postop Eval I Sum Postop Eval Completion status Anesthesia document: Postop Eval 1 completed: Yes Anesthesia Postop Eval I Summary Anesthesia Postop Eval I Summary: Anesthesia Postop Eval I: Assessment Summary Airway patent Yes 01/23/24 17:45 EXECUTIVE CHEF [email or web address] Spontaneous unlabored Yes 01/23/24 17:45 EXECUTIVE CHEF [email or web address] respirations Mental status Awake,Calm 01/23/24 17:45 EXECUTIVE CHEF [email or web address] nausea No 01/23/24 17:45 EXECUTIVE CHEF [email or web address] Vomiting No 01/23/24 17:45 EXECUTIVE CHEF [email or web address] Anesthesia Postop Eval I: Fluid Summary Crystalloid volume administer 1,200 01/23/24 17:45 EXECUTIVE CHEF [email or web address] (ml) Colloids volume administered ( ml) Blood Product volume administered (ml) Total IV fluid infused 1,200 01/23/24 17:45 EXECUTIVE CHEF [email or web address] Anesthesia Postop Eval I: Summary Notes Anesthesia Complication No 01/23/24 17:45 EXECUTIVE CHEF [email or web address] Anesthesia Complication Comment: Post-operative progress note Anesthesia: Postop Eval II Evaluation Mental status: Awake and Calm Pain Level: 1 nausea: No Vomiting: No Complications Anesthesia Complication: No
--- NOTE | 2024-01-24 11:29 | PN.ORTHO_ITS ---
Subjective Subjective The patient was sitting in bedside chair with family present upon examination. Patient denies any chest pain, shortness of breath, dizziness, lightheadedness, nausea or vomiting, or calf pain. Pain is controlled on medications. No adverse overnight events. Patient did have nausea and vomiting yesterday but significantly improved today. Patient also reports that her knee pain feels much better today than before surgery. Objective Data Objective Data Vital Signs: Vital Signs Temp Pulse Resp BP Pulse Ox O2 Del Method O2 Flow Rate 99.1 F 90 16 122/84 H 95 Room Air 2 01/24/24 06:09 01/24/24 08:03 01/24/24 06:09 01/24/24 06:09 01/24/24 08:03 01/24/24 08:03 01/23/24 18:49 Oxygen Flow Rate (L/min) 2 Oxygen Delivery Method Room Air Weight: 94.5 kg Body Mass Index (BMI) 38.0 Intake & Output: Intake and Output for Last 24 Hours 01/22/24 01/23/24 01/24/24 23:59 23:59 23:59 Intake Total 840 / 840 1450 / 1700 1080 / 1080 Output Total 200 / 200 300 / 300 Balance 640 / 640 1150 / 1400 1080 / 1080 Lab / Micro Data 01/23/24 06:38 01/23/24 06:38 Labs: Laboratory Results - last 24 hr 01/24/24 01:25: Vancomycin Trough 10.8 Micro: Microbiology 01/22/24 13:45 Blood Culture (Wb) - Anticubital Left Blood Culture - Preliminary No growth in 48 hours. 01/22/24 12:13 Fluid - Synovial (joint) Gram Stain - Final 01/22/24 12:13 Fluid - Synovial (joint) Body Fluid Culture - Preliminary No growth-Final to follow 01/22/24 12:13 Fluid - Synovial (joint) Anaerobic Culture - Preliminary No growth in 48 hours. Physical Exam Narrative Vital signs stable and afebrile. Patient has SCDs but there are no COREY hose. COREY hose will be ordered. Recommend COREY hose daily for 2 weeks postoperatively. She is able to remove these at nighttime and for showering. Patient is able to plantarflex and dorsiflex actively. Sensation is intact to light touch to saphenous, sural, superficial and deep peroneal, and tibial distribution. Dressing is clean dry and intact. Negative Homans bilaterally, negative signs and symptoms of DVT. Const alert, oriented x3 and no apparent distress Assessment & Plan Assessment/Plan (1) Infection of prosthetic left knee joint: PLAN: 1. S/P irrigation debridement with complete synovectomy with polyethylene revision exchange left total knee arthroplasty POD #1 2. Continue Pain Medications: Pain medications per medicine. Recommend Extra strength Tylenol 500 mg 2 tablets 3 times daily. Also recommend oxycodone 5 mg 1-2 tablets every 4 hours as needed for breakthrough pain. 3. DVT Prophylaxis: Recommend aspirin 81 mg twice daily for 4 weeks postoperatively for DVT prophylaxis. Patient has no past history of DVT or pulmonary embolism. 4. PT/OT: Weightbearing as tolerated with walker. Range of motion as tolerated 5. Labs: No lab work was obtained today. Lab orders including CBC and BMP were placed. 6. Consult infectious disease: Appreciate recommendations from infectious disease. Microbiology results are not available and I did reach out to the OR to see if those tissue samples were sent to lab. Apparently there was a problem with lab order and they are currently working on this. The lab does have these tissue samples. Patient is currently on ceftriaxone and vancomycin. Appreciate any further antibiotics or PICC line from infectious disease. This was discussed with the patient today. 7. Encouraged Incentive Spirometry 8. Patient is aware of postoperative constipation that can occur from 1-3 days postoperatively. Will continue with senna 2 tablets twice daily until first bowel movement. Patient was advised if not having a bowel movement after day 3 she is to contact orthopedics so appropriate change can be made. Patient voiced understanding. 9. Continue postoperative medical treatment per medicine 10. Disposition: Patient currently is not ready for discharge at this time. Awaiting recommendations from infectious disease with regards to PICC line and antibiotics. Lab order was placed today. Currently no labs to evaluate. Patient will continue with formal physical therapy while in the hospital. Continue with medications per medicine for pain control. Once patient is medically stable and recommendations from infectious disease can then begin discharge planning. 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 Case management on board for appropriate discharge planning. Upon discharge patient does live 2 hours from [place] and would recommend 2-week postoperative follow-up and follow-up with infectious disease on the same day. This dictation was created using voice recognition software. Phonetic and/or grammatical errors may exist.
--- NOTE | 2024-01-24 11:45 | CASEMGMT ---
Social Work Pt confirms she has completed a living will and health care POA naming , Michael.? Pt notified that documents are not on file at [facility] and SW requested they be brought in for scanning into the EMR.? MARGARITA Razo
[2024-01-24 11:50] LABS: Hematocrit 32.4 % (37-47); Hemoglobin 10.8 g/dL (12.0-15.0); Mean Corp Hgb Conc 33.3 g/dL (32-36); Mean Corpuscular Hgb 30.7 pg (27.0-32.0); Mean Platelet Vol. 9.4 fl (6.2-12.0); Platelet Count 409 K/mm3 (150-450); RBC Distribution Width CV 13.9 % (11.6-14.6); RBC Distribution Width SD 46.3 fl (35.1-43.9); Red Blood Count 3.52 M/mm3 (4.2-5.4); White Blood Count 20.7 K/mm3 (4.4-11.0)
[2024-01-24 12:14] LABS: Anion Gap 7 (5-15); BUN 13 mg/dL (7-18); BUN/Creat Ratio 17.6 RATIO (10-20); Calcium,Total 8.8 mg/dL (8.5-10.1); Chloride 106 mmol/L (98-107); Creatinine, Serum 0.74 mg/dL (0.55-1.02); EST Glomerular Filtration Rate 83 mL/min (>60); Est Glom Filt Rate - Afr Amer 100 mL/min (>60); Glucose 146 mg/dL (74-106); Potassium 3.6 mmol/L (3.5-5.1); Sodium Level 136 mmol/L (136-145)
[2024-01-24] MEDS: Ceftriaxone 2 GM in 0.9% Normal Saline (50mL MB+) 50 ML IV (12:26)
[2024-01-24] MEDS: Enoxaparin 40 MG/0.4 ML Syringe SC (12:28)
--- NOTE | 2024-01-24 13:35 | PCM.PN.ID ---
Physical Exam Narrative Feeling better, leg less sore, no fever Const alert and no apparent distress General Appearance: cooperative Resp normal air movement and clear to auscultation bilaterally Cardio regular rate and regular rhythm GI soft to palpation, non-tender and non-distended Skin Skin Narrative: LLE bandaged ID ID: Route of nutrition/ use of supplements: [] Nutritional Intake: [] IV Site: [] Reid Catheter: [] Assessment & Plan Assessment/Plan (1) Infection of prosthetic left knee joint: PLAN: Aspiration done, OR 01/23/[address] Vela for I&D and poly exchange. On vanc/ceftriaxone, will continue. Will order picc. Will follow
[2024-01-24] MEDS: HYDROmorphone 2 MG TABLET PO ×3 (13:54→22:13)
--- NOTE | 2024-01-24 14:22 | CASEMGMT ---
Addendum entered by Selam Dooley 01/24/24 16:06: Pacheco scheduled pt appt in 2wks with him. Placed on dc instructions for suture removal. Pt not to wait 3 wks. Addendum entered by Selam Dooley 01/24/24 15:55: Pacheco GRAMAJO requested pt have ID and Ortho follow up on same day. TC to 's office. He is not in on Feb 06 for a 2wk follow up. He is at [facility] on Monday afternoons for appts. He is available on Jan.14 but pt is not in their system so she cannot schedule an appt until information is sent to her. LUCÍA OROZCO to fax this. TC to Dr. Vela's office, spoke with Nkechi, pt scheduled for appt on Jan.14 at 2:15pm. Updated Ray via backline of later appt of 3wks as no appts available at 2wk [facility]. Addendum entered by Selam Dooley 01/24/24 15:38: Received tc back from David at [facility]. He states they could do a teach on Monday if the medication is known at that time, otherwise it would not be until Monday. Booker [facility] could deliver to pt home in [place] as well. LUCÍA OROZCO into pt room to make aware of this. Asked pt if there is a local hospital that she would be willing to go to for picc dressing change and lab draws weekly. Pt states she would go to [facility] or [facility]. Made aware that an out of state hospital may pose issues due to an [place] doctor ordering. Pt states [facility] is close to her but she is not willing to go there. TC to [facility], spoke with Brenda, she states they do not do picc dressings and labs but their main hospital [facility] has a person who goes to the home to do this. TC to [facility] lab, they do not have someone who goes to the home but states their picc team will do this. Trf to picc team who states they do not do this as an outpt but [facility] infusion center does. TC to Infusion Center at [phone], spoke with Phoebe, she states they could schedule this weekly and they would need an order. LUCÍA OROZCO into pt room, pt states that she would be willing to go to [facility] infusion [facility]. Pt states she wants her PT at [facility] on . Phone is [phone]. TC to [facility], their fax is [phone]. TC to [facility] and their fax is [phone]. LUCÍA OROZCO to follow. Addendum entered by Selam Dooley 01/24/24 14:44: TC to David at [facility] to discuss potential teaching of IV here at [facility] and to see if [facility] services pt home location. Pt aware if this is the case, then she can do outpt therapy. LUCÍA OROZCO provided pt with lists for HHC as she would like to call around for herself for quality of agency in case [facility] does not service her area. This list provided by dc senior administrative assistant. Original Note: LUCÍA OROZCO into pt room, pt family present. Pt agreeable to discuss with family present. Discussed potential IV atb need at nm. 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 Discussed the potential options for HHC which would require SN but also therapy in the home as she needs to be homebound for the care. Pt states she wants to do oupt PT as she will not get good therapy if it is in the home so discussed the option of doing outpt PT and going outpt for the infusion if the frequency is daily. Pt states she does not want to go out daily for the infusion. DC senior administrative assistant creating lists of possible HHC agencies in the patient's home area as well as Infusion companies that service her area. LUCÍA OROZCO to follow.
--- NOTE | 2024-01-24 14:43 | CASEMGMT ---
Discharge Planning A list of?HH providers including quality and resource use data and consistent with the patient's preferred geographic region, medical needs, and insurance network was created in CarePort Guide.? This list was provided to the RN PAM. Ynes Ponce, Discharge Planning Asst.
--- NOTE | 2024-01-24 16:35 | PCM.PN.HOSP ---
Reason for Visit Reason for Visit: Diagnoses Pain in left knee (01/22/24) Infection and inflammatory reaction due to internal left knee prosthesis, initial encounter (01/22/24) Personal history of other diseases of the musculoskeletal system and connective tissue (01/22/24) Subjective Subjective Patient was seen and examined today, her white blood cell count has risen to 20.7, there is no growth from her knee fluid as of yet. I talked to infectious diseases concerning her care, patient will need IV antibiotics going home no matter what the culture shows. Patient is continue to have pain in her knee, she has been receiving IV Dilaudid and would like to take something oral to see if it lasts longer, she did not want to take a narcotic but I reminded her that she is already on 1 because she is on Dilaudid. Patient was placed on oral Dilaudid today. Objective Data Objective Data Vital Signs: Vital Signs Temp Pulse Resp BP Pulse Ox O2 Del Method O2 Flow Rate 99.1 F 90 16 122/84 H 95 Room Air 2 01/24/24 06:09 01/24/24 08:03 01/24/24 06:09 01/24/24 06:09 01/24/24 08:03 01/24/24 08:03 01/23/24 18:49 Oxygen Flow Rate (L/min) 2 Oxygen Delivery Method Room Air Weight: 94.5 kg Body Mass Index (BMI) 38.0 Intake & Output: Intake and Output for Last 24 Hours 01/22/24 01/23/24 01/24/24 23:59 23:59 23:59 Intake Total 840 / 840 1450 / 1700 2630 / 2630 Output Total 200 / 200 300 / 300 Balance 640 / 640 1150 / 1400 2630 / 2630 Lab / Micro Data 01/24/24 11:43 01/24/24 11:43 Labs: Laboratory Results - last 24 hr 01/24/24 01:25: Vancomycin Trough 10.8 01/24/24 11:43: WBC 20.7 H, RBC 3.52 L, Hgb 10.8 L, Hct 32.4 L, MCV 92.0, MCH 30.7, MCHC 33.3, RDW Std Deviation 46.3 H, RDW Coeff of Rusty 13.9, Plt Count 409, MPV 9.4, Sodium 136, Potassium 3.6, Chloride 106, Carbon Dioxide 24.0, Anion Gap 7, BUN 13, Creatinine 0.74, Estim Creat Clear Calc 71.10, Est GFR (MDRD) Af Amer 100, Est GFR (MDRD) Non-Af 83, BUN/Creatinine Ratio 17.6, Glucose 146 H, Calcium 8.8 Micro: Microbiology 01/22/24 13:45 Blood Culture (Wb) - Anticubital Left Blood Culture - Preliminary No growth in 48 hours. 01/22/24 12:13 Fluid - Synovial (joint) Gram Stain - Final 01/22/24 12:13 Fluid - Synovial (joint) Body Fluid Culture - Preliminary No growth-Final to follow 01/22/24 12:13 Fluid - Synovial (joint) Anaerobic Culture - Preliminary No growth in 48 hours. Physical Exam Narrative alert, oriented x3, no apparent distress and healthy appearing General Appearance: cooperative, well kempt and well developed Orientation / Consciousness: awake, oriented to person, oriented to place and oriented to time HEENT normocephalic, head/scalp atraumatic and moist oral mucous membranes Eyes PERRL, EOMs intact bilaterally and conjunctivae normal Neck supple, no JVD and thyroid normal General: trachea midline Resp normal respiratory effort, no retractions, no use of accessory muscles and clear to auscultation bilaterally Auscultation: Negative for rales, rhonchi or wheezes Cardio regular rate, regular rhythm, S1 normal heart sound, S2 normal heart sound, no murmurs, no rub and no gallops GI normal to inspection, nondistended, normoactive bowel sounds, soft to palpation, non-tender and non-distended Extremity Extremity Narrative: There is generalized swelling of the left knee noted with warmth Skin no rashes or lesions noted General Skin Exam: no breakdown Neuro oriented x3, CN's II-XII intact bilaterally, moves all extremities, no focal motor deficits and no sensory deficits noted Sensorium / Orientation: awake and alert Speech: speech normal Psych affect normal Assessment & Plan Assessment/Plan (1) Infection of prosthetic left knee joint: PLAN: Plan 1. Infection of the left prosthetic knee-again patient is being seen by orthopedic surgery and infectious diseases, cultures are pending at this time #2 RA-patient's methotrexate Plaquenil will be held at this time #3 asthma-this appears to be stable at this time, complicates care, management, recovery, and prognosis #4 hypothyroidism-patient is currently on Synthroid Total clinical time spent by myself addressing the patient's medical issues, reviewing all of her data, and collaborating with patient's care team: 35 minutes. Charges/Coding Visit Charges Inpatient E&M: 87248 Subs Hosp L2
[2024-01-24 20:00] VITALS: BP 119/73; PULSE 90; RESP 16; TEMP 36.8; O2SAT 96
[2024-01-24] MEDS: Acetaminophen 500 MG Tablet 1000 MG PO (22:13)
[2024-01-24] MEDS: DiphenhydrAMINE 25 MG Capsule 50 MG PO (23:20)
[2024-01-25] MEDS: HYDROmorphone 2 MG TABLET PO ×2 (02:42→12:03)
[2024-01-25] MEDS: 0.9% Saline Lock 10 ML Syringe IV (02:43)
[2024-01-25] MEDS: Vancomycin HCl 1,500 MG in 0.9% Normal Saline (500mL Bag) 500 ML 250 MG IV ×2 (02:43→15:11)
[2024-01-25 02:56] VITALS: BP 108/64; PULSE 51; RESP 16; TEMP 36.6; O2SAT 95
[2024-01-25] MEDS: Levothyroxine 100 MCG Tablet PO (06:36)
[2024-01-25] MEDS: Acetaminophen 500 MG Tablet 1000 MG PO ×2 (06:36→14:10)
[2024-01-25 08:15] VITALS: BP 118/71; PULSE 82; RESP 17; TEMP 37; O2SAT 94
--- NOTE | 2024-01-25 08:28 | NURSING ---
Pt states she wants to take her methotrexate today b/c she did not have it Francine and can tell that she needs it. Pt wants to wait to take scheduled meds until she has her breakfast.
[2024-01-25] MEDS: Cholecalciferol (VIT D3) 25 MCG TABLET (1,000 UNITS) 50 MCG PO (09:38)
[2024-01-25] MEDS: Montelukast 10 MG Tablet PO (09:38)
[2024-01-25] MEDS: Enoxaparin 40 MG/0.4 ML Syringe SC (09:39)
[2024-01-25] MEDS: Folic Acid 1 MG Tablet PO (09:39)
[2024-01-25] MEDS: Ceftriaxone 2 GM in 0.9% Normal Saline (50mL MB+) 50 ML IV (09:45)
--- NOTE | 2024-01-25 10:13 | PCM.PN.HOSP ---
Reason for Visit Reason for Visit: Diagnoses Pain in left knee (01/22/24) Infection and inflammatory reaction due to internal left knee prosthesis, initial encounter (01/22/24) Personal history of other diseases of the musculoskeletal system and connective tissue (01/22/24) Subjective Subjective Patient was seen and examined today, I talked briefly yesterday with infectious diseases, it appears that the patient will need to go home with IV antibiotics, PICC line was placed yesterday, it is planned that the patient will be taught to give her own infusions tomorrow morning. Objective Data Objective Data Vital Signs: Vital Signs Temp Pulse Resp BP Pulse Ox O2 Del Method O2 Flow Rate 98.6 F 82 17 118/71 94 Room Air 2 01/25/24 08:15 01/25/24 08:15 01/25/24 08:15 01/25/24 08:15 01/25/24 08:15 01/25/24 08:15 01/23/24 18:49 Oxygen Flow Rate (L/min) 2 Oxygen Delivery Method Room Air Weight: 94.5 kg Body Mass Index (BMI) 38.0 Intake & Output: Intake and Output for Last 24 Hours 01/23/24 01/24/24 01/25/24 23:59 23:59 23:59 Intake Total 1450 / 1700 3606 / 3606 530 / 530 Output Total 300 / 300 Balance 1150 / 1400 3606 / 3606 530 / 530 Lab / Micro Data 01/24/24 11:43 01/24/24 11:43 Labs: Laboratory Results - last 24 hr 01/24/24 11:43: WBC 20.7 H, RBC 3.52 L, Hgb 10.8 L, Hct 32.4 L, MCV 92.0, MCH 30.7, MCHC 33.3, RDW Std Deviation 46.3 H, RDW Coeff of Rusty 13.9, Plt Count 409, MPV 9.4, Sodium 136, Potassium 3.6, Chloride 106, Carbon Dioxide 24.0, Anion Gap 7, BUN 13, Creatinine 0.74, Estim Creat Clear Calc 71.10, Est GFR (MDRD) Af Amer 100, Est GFR (MDRD) Non-Af 83, BUN/Creatinine Ratio 17.6, Glucose 146 H, Calcium 8.8 Micro: Microbiology 01/22/24 13:45 Blood Culture (Wb) - Anticubital Left Blood Culture - Preliminary No growth in 48 hours. 01/22/24 12:13 Fluid - Synovial (joint) Gram Stain - Final 01/22/24 12:13 Fluid - Synovial (joint) Body Fluid Culture - Preliminary No growth-Final to follow 01/22/24 12:13 Fluid - Synovial (joint) Anaerobic Culture - Preliminary No growth in 48 hours. Physical Exam Narrative alert, oriented x3, no apparent distress and healthy appearing General Appearance: cooperative, well kempt and well developed Orientation / Consciousness: awake, oriented to person, oriented to place and oriented to time HEENT normocephalic, head/scalp atraumatic and moist oral mucous membranes Eyes PERRL, EOMs intact bilaterally and conjunctivae normal Neck supple, no JVD and thyroid normal General: trachea midline Resp normal respiratory effort, no retractions, no use of accessory muscles and clear to auscultation bilaterally Auscultation: Negative for rales, rhonchi or wheezes Cardio regular rate, regular rhythm, S1 normal heart sound, S2 normal heart sound, no murmurs, no rub and no gallops GI normal to inspection, nondistended, normoactive bowel sounds, soft to palpation, non-tender and non-distended Extremity Extremity Narrative: There is generalized swelling of the left knee noted with warmth Skin no rashes or lesions noted General Skin Exam: no breakdown Neuro oriented x3, CN's II-XII intact bilaterally, moves all extremities, no focal motor deficits and no sensory deficits noted Sensorium / Orientation: awake and alert Speech: speech normal Psych affect normal Assessment & Plan Assessment/Plan (1) Prosthetic joint infection: (2) Infection of prosthetic left knee joint: PLAN: Plan 1. Infection of the left prosthetic knee-again patient is being seen by orthopedic surgery and infectious diseases, cultures are pending at this time, patient now has a PICC line, outpatient antibiotic selection is being decided upon by ID. #2 RA-patient's methotrexate Plaquenil will be held at this time #3 asthma-this appears to be stable at this time, complicates care, management, recovery, and prognosis #4 hypothyroidism-patient is currently on Synthroid Total clinical time spent by myself addressing the patient's medical issues, reviewing all of her data, and collaborating with patient's care team: 35 minutes. Charges/Coding Visit Charges Inpatient E&M: 12327 Subs Hosp L2
--- NOTE | 2024-01-25 10:46 | CASEMGMT ---
Addendum entered by Selam Dooley 01/25/24 14:46: Confirmed with [facility] that pt med will be delivered today. Updated pt nurse who was inquiring. Addendum entered by Selam Dooley 01/25/24 14:08: Pt nurse aware of extension tubing that needs placed to pt picc line prior to dc. Addendum entered by Selam Dooley 01/25/24 14:02: 1300-Received tc back from Dr. Arredondo's office. Appt is 02/13 at 1:45pm at [facility]. Received notification from [facility] that teaching went well. RN CM into pt room, pt aware of appt with Pacheco, Dr. Arredondo, the infusion center for picc and labs and first therapy appt. Pt is not happy about having to see Pacheco to have her sutures removed and come back the following week to see Dr. Arredondo. Tried to express to pt that it was not possible to see both doctors the same day as Dr. Arredondo is not their on Feb 06 but it is necessary for her to see Pacheco as she needs her sutures removed. Pt states That is bullshit. Made patient aware that all of her other requests were able to be satisfied. Pt states she wants to leave now as she does not want to drive in the dark. Updated hospitalist. Made pt aware that the benefits are not back from [facility] yet. Pt states it doesn't matter, I have to pay for it no matter what. Pt states she does not want to wait for benefits to come back. DC instructions sent to [facility] via careport at this time. Pt denies any further needs at this time. She is aware that all of the information is on her dc instructions. She is aware she will see at the [facility] in [place]. Addendum entered by Selam Dooley 01/25/24 11:59: Faxed Dr. Arredondo's office all pt documentation so an appt could be scheduled. Requested to be called with appt time on Feb.13. Addendum entered by Selam Dooley 01/25/24 11:45: Received call back from Maria Ines at [facility], they can see pt on Jan 30 at 10:20am. Faxed order and Maria Ines states they have all the information they need. Addendum entered by Selam Dooley 01/25/24 11:44: Pt prefers PT to start on Monday morning. TC to [facility], the first available is MondayJan 30 at 8am. Pt to arrive 15 min early with insurance card, list of medications and order. This information placed on dc instructions, will give pt a copy of order. TC to [facility] to set up picc and labs, left message with request for appt to start on Monday. Addendum entered by Selam Dooley 01/25/24 11:22: Pt gave written directions for her home as she states that the cell service may be lost if using a GPS. Will provide to [facility]. Addendum entered by Selam Dooley 01/25/24 11:15: RN CM into pt room to make aware of update on status of pt dc. Pt verbalizes understanding and RN CM will continue to work on dc plan. Addendum entered by Selam Dooley 01/25/24 11:03: Pt will dc today after ortho rounds. Message to [facility] to make aware of dc today instead of tomorrow. Addendum entered by Selam Dooley 01/25/24 10:53: Spoke with David at [facility], Georges is coming today to do teaching with pt. Message to hospitalist to see if pt medically ready to dc this date. Original Note: Referral sent to [facility] for IV infusion via careport for 2 IV rx.
[2024-01-25] MEDS: Methotrexate 2.5 MG Tablet 25 MG PO (11:43)
--- NOTE | 2024-01-25 13:00 | PCM.DC ---
Discharge Instructions Diet Discharge Diet: No restrictions Activity Discharge Activity: Return to Normal Activity Weight Bearing Status: Weight bearing as tolerated Follow Up Care Test Results: Test results from this visit will be discussed in further detail at your follow-up appointment, if applicable. Discharge Plan Admission Admit Date/Time: 01/22/24 13:35 Primary Reason for Your Visit: Joint infection left knee Attending Provider: Srinivas Lugo Primary Care Provider: REGULO RIVERA Consulting Providers: Kristian Vela; Jorge Salgado; Michael Arredondo Instructions Additional Instructions / Restrictions: Wear COREY hose x 2 weeks, change dressing in 5 days Discharge Orders/Prescriptions Prescriptions: New ceftriaxone 2 gram recon soln 2 g IV Q24H 40 Days Rx Instructions: dx: PJI. stop date 03/05/24. Weekly bmp, cbc, vanc trough, and esr. Fax to [phone]. Routine picc care per protocol. vancomycin 1.5 gram recon soln 1.5 g IV Q12H 40 Days Rx Instructions: dx: PJI. stop date 03/05/24. Weekly bmp, cbc, vanc trough, and esr. Fax to [phone]. Routine picc care per protocol. hydromorphone 2 mg Tablet 2 mg PO Q4H PRN PRN (Reason: Pain Score 1-10) 7 Days Qty: 30 0RF Continued fluticasone propion-salmeterol [Advair Diskus] 250-50 mcg/dose Blister With Device 1 inh INHALATION BID Patient Comments: uses in late summer/early fall for allergies folic acid 1 mg Tablet 1 mg PO DAILY montelukast [Singulair] 10 mg Tablet 10 mg PO DAILY albuterol sulfate 90 mcg/actuation Hfa Aerosol Inhaler 1 inh INHALATION Q6H PRN (Reason: ALLERGIES) cholecalciferol (vitamin D3) [Vitamin D3] 50 mcg (2,000 unit) Capsule 50 mcg PO TU Zyrtec 10 mg Capsule 10 mg PO DAILY levothyroxine 100 mcg Capsule 100 mcg PO QHS epinephrine 0.3 mg/0.3 mL Auto-Injector 0.3 mg IM Q4H PRN (Reason: Anaphylaxis) diphenhydramine HCl [Allergy (diphenhydramine)] 25 mg capsule 50 mg PO QHS acetaminophen 500 mg capsule 1,000 mg PO QHS Held methotrexate sodium 2.5 mg Tablet 25 mg PO TU Hold Instructions: Check with your principal examiner about resuming this medication due to your left knee infection Discontinued lisinopril 10 mg Tablet 10 mg PO QHS hydroxychloroquine [Plaquenil] 200 mg Tablet 200 mg PO BID Referrals / Follow Up: REGULO RIVERA [Other] Michael Arredondo MD [Med Staff - Active Staff] - 02/14/24 1:45 pm NOT,DEFINED [Non-Staff] - Pacheco Damian PA-C [Med Staff - Adv Practice Prof] - 02/07/24 3:00 pm (Suture removal) Disposition Disposition (needs filled in before D/C Order can be placed): Home, Self Care
--- NOTE | 2024-01-25 13:16 | DS.PCM_ITS ---
Providers Date of Admission: 01/22/24 Date of Discharge: 01/25/24 Primary Care Physician: REGULO RIVERA Consultations 01/22/24 15:07 Consult: Orthopedics Routine Consulting Provider: Kristian Vela Reason for Consult: left prosthetic knee infection EMERGENT Consult: No Notified: Yes Date Notified: 01/22/24 Time Notified: 18:48 Method of Notification: Verbal 01/23/24 07:21 Consult: Infectious Disease Routine Consulting Provider: Michael Arredondo Reason for Consult: joint infection EMERGENT Consult: No Notified: Yes Date Notified: 01/23/24 Time Notified: 07:21 Method of Notification: Text Reason For Visit: PROSTETIC KNEE INFECTION Diagnosis Discharge Diagnosis (1) Prosthetic joint infection: Status: Acute Code(s): T84.50XA - Infection and inflammatory reaction due to unspecified internal joint prosthesis, initial encounter (2) Infection of prosthetic left knee joint: Status: Acute Code(s): T84.54XA - Infection and inflammatory reaction due to internal left knee prosthesis, initial encounter Plan 1. Infection of the left prosthetic knee-again patient is being seen by orthopedic surgery and infectious diseases, cultures are pending at this time, patient now has a PICC line, outpatient antibiotic selection is being decided upon by ID. #2 RA-patient's methotrexate Plaquenil will be held at this time #3 asthma-this appears to be stable at this time, complicates care, management, recovery, and prognosis #4 hypothyroidism-patient is currently on Synthroid Total clinical time spent by myself addressing the patient's medical issues, reviewing all of her data, and collaborating with patient's care team: 35 minutes. Medications at Discharge Home Medications albuterol sulfate 90 mcg/actuation aerosol inhaler 1 inh inhalation Q6H PRN ALLERGIES 01/04/22 cetirizine 10 mg capsule (Zyrtec) 10 mg PO DAILY Check with primary doctor 01/04/22 cholecalciferol (vitamin D3) 50 mcg (2,000 unit) capsule (Vitamin D3) 50 mcg PO TU Check with primary doctor 01/04/22 epinephrine 0.3 mg/0.3 mL injection, auto-injector 0.3 mg IM Q4H PRN Anaphylaxis 01/04/22 fluticasone 250 mcg-salmeterol 50 mcg/dose blistr powdr for inhalation (Advair Diskus) 1 inh inhalation BID Check with primary doctor 01/04/22 folic acid 1 mg tablet 1 mg PO DAILY Check with primary doctor 01/04/22 levothyroxine 100 mcg capsule 100 mcg PO QHS Check with primary doctor 01/04/22 methotrexate sodium 2.5 mg tablet 25 mg PO TU Check with primary doctor 01/04/22 montelukast 10 mg tablet (Singulair) 10 mg PO DAILY Check with primary doctor 01/04/22 acetaminophen 500 mg capsule 1,000 mg PO QHS 01/22/24 diphenhydramine HCl 25 mg capsule (Allergy (diphenhydramine)) 50 mg PO QHS 01/22/24 ceftriaxone 2 gram intravenous solution 2 g IV Q24H 40 days 01/25/24 hydromorphone 2 mg tablet 2 mg PO Q4H PRN PRN Pain Score 1-10 7 days #30 tabs 01/25/24 vancomycin 1.5 gram intravenous solution 1.5 g IV Q12H 40 days 01/25/24 Hospital Course Operations None Procedures - (Irrigation debridement, complex synovectomy with polyethylene revision exchanged left total knee.) Summary of Care Provided Minutes Spent on Discharge: 32 Hospital Course: This 68-year-old white female was seen in the emergency room at [facility] with complaints of left knee swelling, redness, and pain. Patient had a previous prosthesis put in the left knee in the past. Labs were obtained in the emergency room, fluid was obtained from the left knee which showed leukocytes. Culture was sent. Patient was admitted to [place] [id number] and seen in consultation by orthopedic surgery, she was also seen by infectious diseases. The following day after admission, patient underwent a washout of her left knee with debridement and complete synovectomy with polyethylene revision exchange. She was seen in consultation by physical therapy afterwards, cultures did not grow out any organisms at the time of this dictation. Arrangements are made for the patient to receive outpatient antibiotics, PICC line was inserted in the hospital. Patient lives in [facility] and again arrangements were made for the patient to receive antibiotics as an outpatient. On 01/25/2024, patient was seen and examined: On examination she appeared in good health and spirits, she does not appear to be in any distress. Vital signs as documented. Skin warm and dry and without overt rashes. Neck without JVD, thyroid appears normal, trachea is midline, neck is supple. Lungs clear, normal air movement was noted. Heart exam notable for regular rhythm, normal sounds and absence of murmurs, rubs or gallops. Abdomen unremarkable and without evidence of organomegaly, masses, or abdominal aortic enlargement, bowel sounds are present in all 4 quadrants, no abdominal tenderness was noted. Extremities nonedematous, no cyanosis was noted, no clubbing was noted. Neuro: Cranial nerves II through XII are grossly intact, no focal motor deficits were noted, sensation to light touch and pinprick is intact, motor exam 5/5 throughout. Psych: Patient is alert and oriented x3, she does not appear anxious or depressed, she does not appear agitated. Patient appeared stable for discharge home on 01/25/2024 in stable condition. Weight / BMI Weight Weight: 94.5 kg Body Mass Index (BMI) 38.0 ABG / Lab / Microbiology Data 01/24/24 11:43 01/24/24 11:43 Microbiology: Microbiology 01/22/24 13:45 Blood Culture (Wb) - Anticubital Left Blood Culture - Preliminary No growth in 48 hours. 01/22/24 12:13 Fluid - Synovial (joint) Gram Stain - Final 01/22/24 12:13 Fluid - Synovial (joint) Body Fluid Culture - Preliminary No growth-Final to follow 01/22/24 12:13 Fluid - Synovial (joint) Anaerobic Culture - Preliminary No growth in 48 hours. D/C Instructions Discharge Diet: No restrictions Weight Bearing Status: Weight bearing as tolerated Meaningful Use Info Meaningful Use Meaningful Use Diagnoses (Choose all that apply): None applicable Ischemic Stroke Statin Dosing Therapy Reference: STATIN DOSE THERAPY REFERENCE: * Patients > 75 years receive moderate or high dose statin therapy. * Patients 75 years or YOUNGER should receive HIGH intensity statin dose unless contraindicated. You will be required to document reason for non-treatment if statin daily dose does not meet guidelines. HIGH DOSE STATIN THERAPY DAILY Atorvastatin > than or = to 40 mg Rosuvastatin > than or = to 20 mg Amlodipine + Atorvastatin > than or = to 2.5/40 mg Ezetimibe + Simvastatin 10/80 mg Simvastatin 80mg Discharge Plan Admission Admit Date/Time: 01/22/24 13:35 Primary Reason for Your Visit: Joint infection left knee Attending Provider: Srinivas Lugo Primary Care Provider: REGULO RIVERA Consulting Providers: Kristian Vela; Jorge Salgado; Michael Arredondo Instructions Additional Instructions / Restrictions: Wear COREY hose x 2 weeks, change dressing in 5 days Discharge Orders/Prescriptions Prescriptions: New ceftriaxone 2 gram recon soln 2 g IV Q24H 40 Days Rx Instructions: dx: PJI. stop date 03/05/24. Weekly bmp, cbc, vanc trough, and esr. Fax to [phone]. Routine picc care per protocol. vancomycin 1.5 gram recon soln 1.5 g IV Q12H 40 Days Rx Instructions: dx: PJI. stop date 03/05/24. Weekly bmp, cbc, vanc trough, and esr. Fax to [phone]. Routine picc care per protocol. hydromorphone 2 mg Tablet 2 mg PO Q4H PRN PRN (Reason: Pain Score 1-10) 7 Days Qty: 30 0RF Continued fluticasone propion-salmeterol [Advair Diskus] 250-50 mcg/dose Blister With Device 1 inh INHALATION BID Patient Comments: uses in late summer/early fall for allergies folic acid 1 mg Tablet 1 mg PO DAILY montelukast [Singulair] 10 mg Tablet 10 mg PO DAILY albuterol sulfate 90 mcg/actuation Hfa Aerosol Inhaler 1 inh INHALATION Q6H PRN (Reason: ALLERGIES) cholecalciferol (vitamin D3) [Vitamin D3] 50 mcg (2,000 unit) Capsule 50 mcg PO TU Zyrtec 10 mg Capsule 10 mg PO DAILY levothyroxine 100 mcg Capsule 100 mcg PO QHS epinephrine 0.3 mg/0.3 mL Auto-Injector 0.3 mg IM Q4H PRN (Reason: Anaphylaxis) diphenhydramine HCl [Allergy (diphenhydramine)] 25 mg capsule 50 mg PO QHS acetaminophen 500 mg capsule 1,000 mg PO QHS Held methotrexate sodium 2.5 mg Tablet 25 mg PO TU Hold Instructions: Check with your hair dryer about resuming this medication due to your left knee infection Discontinued lisinopril 10 mg Tablet 10 mg PO QHS hydroxychloroquine [Plaquenil] 200 mg Tablet 200 mg PO BID Referrals / Follow Up: REGULO RIVERA [Other] [place] Arredondo MD [Med Staff - Active Staff] - 02/14/24 1:45 pm NOT,DEFINED [Non-Staff] - Pacheco Damian PA-C [Med Staff - Adv Practice Prof] - 02/07/24 3:00 pm (Suture removal) Disposition Disposition (needs filled in before D/C Order can be placed): Home, Self Care Charges/Coding Visit Charges Inpatient E&M: 64791 Disch Hosp >30min
[2024-01-25 14:15] VITALS: BP 110/63; PULSE 92; RESP 18; TEMP 37.5; O2SAT 97
[2024-01-25 14:21] LABS: Vancomycin, Trough Level 19.4 ug/mL (5.0-15.0)
--- NOTE | 2024-01-25 15:00 | PCM.PN.ID ---
Physical Exam Narrative Picc in place, no fever, no n/v/d. Leg pain controlled. Const alert and no apparent distress General Appearance: cooperative Resp normal air movement and clear to auscultation bilaterally Cardio regular rate and regular rhythm GI soft to palpation, non-tender and non-distended Skin no rashes or lesions noted ID ID: Route of nutrition/ use of supplements: [] Nutritional Intake: [] IV Site: [] Reid Catheter: [] Assessment & Plan Assessment/Plan (1) Infection of prosthetic left knee joint: PLAN: Aspiration done, OR 01/23/[address] Vela for I&D and poly exchange. On vanc/ceftriaxone, will continue for 6 week course, stop date 03/05/24 with weekly labs and ID followup in 2 weeks. Will follow
--- NOTE | 2024-01-25 15:01 | PCM.RX.CS ---
Consult Antibiotic Management Pharmacy has been consulted to manage selected antibiotic: Vancomycin Type of Intervention Type of Consult: Follow-up Labs Labs: Sodium 136 mmol/L (136-145) 01/24/24 11:43 Potassium 3.6 mmol/L (3.5-5.1) 01/24/24 11:43 Chloride 106 mmol/L (98-107) 01/24/24 11:43 Carbon Dioxide 24.0 mmol/L (21.0-32.0) 01/24/24 11:43 Anion Gap 7 (5-15) 01/24/24 11:43 BUN 13 mg/dL (7-18) 01/24/24 11:43 Creatinine 0.74 mg/dL (0.55-1.02) 01/24/24 11:43 Est GFR (MDRD) Af Amer 100 mL/min (>60) 01/24/24 11:43 Est GFR (MDRD) Non-Af 83 mL/min (>60) 01/24/24 11:43 BUN/Creatinine Ratio 17.6 RATIO (10-20) 01/24/24 11:43 Glucose 146 mg/dL (74-106) H 01/24/24 11:43 Vancomycin Trough 19.4 ug/mL (5.0-15.0) H 01/25/24 13:45 Microbiology Microbiology: Microbiology 01/22/24 13:45 Blood Culture (Wb) - Anticubital Left Blood Culture - Preliminary No growth in 48 hours. 01/22/24 12:13 Fluid - Synovial (joint) Gram Stain - Final 01/22/24 12:13 Fluid - Synovial (joint) Body Fluid Culture - Preliminary No growth-Final to follow 01/22/24 12:13 Fluid - Synovial (joint) Anaerobic Culture - Preliminary No growth in 48 hours. Goal Trough Goal Trough: 15-20 mcg/mL Pharmacy Plan for Drug Dosing Pharmacy Plan for Drug Dosing: VANCOMYCIN LEVEL RECEIVED Current Vancomycin Dose: 1500 MG IV Q12H Number of Doses Received: 3 (CURRENT REGIMEN) Vancomycin Level: 19.4 ug/mL Hours Since Last Dose: 11.25 hr Renal Function: SCr 0.74 Renal Function Trend: Stable Vancomycin Plan/Comments: Patient is within therapeutic level of 15-20 ug/ml of 19.4. Will continue current dosing regimen. Recheck Trough in 2 Days. Pending Level: 01/27/2024 at 1400 Pharmacy will continue to monitor.
== END 2024-01-25 18:21 | disposition home or self-care (01) | DRG 487 ==
LOC: ED 13:21 → MS3 14:29
PROVIDERS: Family Medicine; Physician Assistant Surgical; Specialist; Admitting Provider Hospitalist; Emergency Provider Emergency Medicine; Visit Provider Internal Medicine
PROC: 0SPD09Z Removal of Liner from Left Knee Joint, Open Approach (ICD-10-PCS; CPT 27301; principal; 2024-01-23 14:40)
DX: T84.54XA Infection and inflammatory reaction due to internal left knee prosthesis, initial encounter (principal); E03.9 Hypothyroidism, unspecified; M06.9 Rheumatoid arthritis, unspecified; I10 Essential (primary) hypertension; J45.909 Unspecified asthma, uncomplicated; Z68.38 Body mass index [BMI] 38.0-38.9, adult; M25.562 Pain in left knee; J30.2 Other seasonal allergic rhinitis; M19.90 Unspecified osteoarthritis, unspecified site; Z90.710 Acquired absence of both cervix and uterus; Z79.1 Long term (current) use of non-steroidal anti-inflammatories (NSAID); Z79.51 Long term (current) use of inhaled steroids; Z79.2 Long term (current) use of antibiotics; E66.9 Obesity, unspecified; Z79.890 Hormone replacement therapy; Z79.891 Long term (current) use of opiate analgesic; Z79.899 Other long term (current) drug therapy; Y79.2 Prosthetic and other implants, materials and accessory orthopedic devices associated with adverse incidents
CPT/HCPCS: 36415; 36569; 73560; 80048; 80202; 84443; 85025; 85027; 85610; 85652; 85730; 86140; 87015; 87040; 87070; 87075; 87102; 87116; 87176; 87205; 87206; 88304; 89050; 89051; 89060; 93005; 94668; 97116; 97162; 97166; 97530; 97802; 99283; C1776; A4216; J0696; J2405; J8610

== ENCOUNTER → 2024-03-26 | Outpatient (CLI) | payer MEDICARE, OTHER, SELFPAY ==
--- NOTE | 2024-03-26 07:39 | US_ITS ---
STUDY: ABDOMINAL ULTRASOUND - RIGHT UPPER QUADRANT; ELASTOGRAPHY REASON FOR VISIT: Female, 68 years old. Long-term medication use. TECHNIQUE: Ultrasound evaluation of the right upper quadrant was performed with real-time and static galindo-scale imaging. Point quantification shear wave elastography was performed ([employer]). TECHNICAL QUALITY: Adequate. COMPARISON: None. FINDINGS: Liver: The liver measures 14.3 cm. There is normal echogenicity of the liver. The bile ducts are within normal limits. There is hepatic color flow. The direction of portal flow is hepatopetal. There is no demonstrated mass lesion. Median liver stiffness measured 4.5 kPa. Gallbladder: Normal distended gallbladder. The gallbladder wall measures 2 mm. There is a negative sonographic Gonzalez''s sign. There is no pericholecystic fluid. There are multiple echogenic structures within the gallbladder, consistent with multiple gallstones. Sludge is seen within the gallbladder lumen. Common Bile Duct (C.B.D.): The common bile duct measures 3 mm. Pancreas: There is normal echogenicity of the visualized pancreas. There is no demonstrated pancreatic mass or cyst. Right Kidney: Normal size of the right kidney. The right kidney measures 10.8 cm x 5.8 cm x 3.8 cm. Normal renal cortex. The right cortex measures 1.2 cm. There is no demonstrated renal mass or cyst. There is no right hydronephrosis. US/ABD Limited w/ Elastography IMPRESSION: 1. Liver stiffness measures 4.5 kPa compatible with FO (Normal) Metavir score. Electronically Signed: Steve Daily MD at 14:12 EST ,
== END | disposition home or self-care (01) ==
LOC: US 07:36
DX: M06.00 Rheumatoid arthritis without rheumatoid factor, unspecified site (principal); Z79.899 Other long term (current) drug therapy
CPT/HCPCS: 76705; 76981

== ENCOUNTER → 2024-04-26 | Outpatient (CLI) | payer MEDICARE, OTHER, SELFPAY ==
--- NOTE | 2024-04-26 12:42 | ECHOD_ITS ---
Reason For Study Reason For Study: CARDIOMEGALY Procedure This was a 2D Doppler, Color Flow transthoracic echocardiogram. Exam performed in department. Left Ventricle Normal LV size. The estimated ejection fraction is 55 %. No evidence for diastolic dysfunction. No regional wall motion abnormalities noted. Right Ventricle Normal RV size. Normal systolic function. Atria The left and right atria are normal. No doppler evidence for ASD. Mitral Valve There is no mitral valve stenosis. Trivial mitral valve insufficiency. Tricuspid Valve There is no tricuspid stenosis. Trivial tricuspid valve insufficiency. Pulmonary artery systolic pressure is 30 mmHg. Aortic Valve Trisinus/trileaflet aortic valve. There is no aortic stenosis. Trivial aortic valve insufficiency. Pulmonic Valve There is no pulmonic valvular stenosis. No pulmonic valve insufficiency. Great Vessels Normal aortic root. Pericardium/Pleural No pericardial effusion. MMode/2D Measurements & Calculations LVIDd: 5.2 cm IVSd: 0.96 cm LVOT diam: 2.2 cm LVIDs: 2.9 cm LVPWd: 0.95 cm LVOT area: 3.6 cm2 RVDd: 3.5 cm FS: 43.7 % asc Aorta Diam: 4.1 cm LAV(MOD-bp): 39.1 ml LVAd ap4: 30.7 cm2 LAV(MOD-bp) Indexed: 20.1 ml/m2 LVLd ap4: 8.0 cm LAV(MOD-sp2): 43.0 ml EDV(MOD-sp4): 94.0 ml LAV(MOD-sp4): 35.4 ml EDV(sp4-el): 99.2 ml LVAs ap4: 17.3 cm2 LVLs ap4: 6.8 cm ESV(MOD-sp4): 38.3 ml ESV(sp4-el): 37.5 ml EF(MOD-sp4): 59.2 % EF(sp4-el): 62.2 % LVAd ap2: 28.7 cm2 SV(MOD-sp4): 55.6 ml SV(MOD-sp2): 51.5 ml LVLd ap2: 8.0 cm SI(MOD-sp4): 28.6 ml/m2 SI(MOD-sp2): 26.5 ml/m2 EDV(MOD-sp2): 83.7 ml EDV(sp2-el): 87.8 ml LVAs ap2: 15.5 cm2 LVLs ap2: 6.5 cm ESV(MOD-sp2): 32.1 ml ESV(sp2-el): 31.3 ml EF(MOD-sp2): 61.6 % SV(sp4-el): 61.6 ml Ao sinus diam: 3.[address] Junction: 3.0 cm LA dimension(2D): 3.5 cm LA A4 area: 15.3 cm2 RA A4 area: 12.5 cm2 TAPSE: 2.0 cm Time Measurements MV dec time: 0.20 sec Doppler Measurements & Calculations MV E max ok: 74.9 cm/sec Lat Peak E' Ok: 9.1 cm/sec Med Peak E' Ok: 9.1 cm/sec MV A max ok: 88.1 cm/sec E/E' lat: 8.2 E/E' med: 8.2 MV E/A: 0.85 MV dec slope: 374.5 cm/sec2 Ao V2 max: 148.5 cm/sec LV V1 max: 115.4 cm/sec Ao max P.8 mmHg LV V1 max P.3 mmHg Ao V2 mean: 100.4 cm/sec LV V1 mean P.6 mmHg Ao mean P.5 mmHg LV V1 mean: 76.7 cm/sec Ao V2 VTI: 32.4 cm LV V1 VTI: 26.9 cm AV (velocity ratio): 0.83 ANIBAL(I,D): 3.0 cm2 ANIBAL(V,D): 2.8 cm2 SV(LVOT): 98.1 ml PA V2 max: 83.2 cm/sec TR max ok: 260.9 cm/sec TR max P.2 mmHg ECHO/Echo Complete Interpretation Summary The estimated ejection fraction is 55 %. No evidence for diastolic dysfunction. Trivial mitral valve insufficiency. Trivial aortic valve insufficiency. Ordering Physician: RORY BAILEY Referring Physician: RORY BAILEY Performed By: Constance Salmon, SUE
== END | disposition home or self-care (01) ==
LOC: CVS 12:42
DX: Z79.899 Other long term (current) drug therapy (principal)
CPT/HCPCS: 93306